=== PATIENT | male | born 1945 | race Caucasian/White ===

== ENCOUNTER 2019-08-31 00:48 | Day surgery (SDC) | payer MEDICARE, SELFPAY ==
[2019-08-30 15:34] VITALS: BMI 26.9
[2019-08-31] VITALS (23 sets, daily range): BP systolic 123–155; BP diastolic 55–80; PULSE 48–74; RESP 12–18; TEMP 36.4–37; O2SAT 93–99; BMI 26.6
--- NOTE | ~2019-08-31 | US_ITS ---
EXAMINATION: US arterial duplex LE RT EXAM DATE: 09/01/2019 10:49 INDICATION: Right groin pain, catheterization yesterday. Check for pseudoaneurysm. TECHNIQUE: Multiple grayscale and Doppler images of the right common and superficial femoral arteries and veins were obtained (by a technologist who performed the scan) and subsequently reviewed. There is no prior study for comparison. FINDINGS: Normal Doppler signal within the right common and superficial femoral arteries and veins. No pseudoan eurysm, hematoma or inguinal mass. IMPRESSION: 1. Unremarkable ultrasound exam. Reviewed, dictated and finalized at location B. [employer]
[2019-08-31 07:41] LABS: Basophils Absolute Auto 0.1 K/mm3 (0.0-0.1); Basophils Percent Auto 1.4 % (0.2-1.2); Eosinophils Absolute Auto 0.3 K/mm3 (0-0.3); Eosinophils Percent Auto 3.9 % (0-4.4); Hematocrit 43.7 % (42.0-52.0); Immature Granulocyte Absolute 0.02 K/mm3 (0.00-0.031); Immature Granulocyte Percent A 0.3 % (0-0.5); Lymphocytes Absolute Auto 3.19 K/mm3 (0.9-3.2); Lymphocytes Percent Auto 44.3 % (18.3-44.2); Mean Corpuscular HGB Conc 34.3 g/dl (32-36); Mean Corpuscular Hemoglobin 29.2 pg (26-34); Mean Corpuscular Volume 85.2 fl (80-100); Monocytes Absolute Auto 0.6 K/mm3 (0.1-0.6); Monocytes Percent Auto 8.8 % (2.6-8.5); Neutrophils Percent Auto 41.3 % (45.5-73.1); Platelet Count Result 198 k/mm3 (150-375); Red Blood Count 5.13 M/mm3 (4.6-6.20); Red Cell Distribution Width 13.4 % (11.5-14.5); White Blood Count 7.2 K/mm3 (4.5-10.0)
[2019-08-31 07:50] LABS: INR 0.9; Prothrombin Time 12.2 Seconds (11.1-14.7)
[2019-08-31 07:53] LABS: Blood Urea Nitrogen 18 mg/dL (9-20); Calcium 8.6 mg/dL (8.4-10.2); Carbon Dioxide 23 mmol/L (22-30); Chloride 104 mmol/L (98-107); Estimated CRCL calculation 60 ml/min; Estimated Glomerular Filt Rate > 60; Glucose 116 mg/dL (75-110); Potassium 4.1 mmol/L (3.4-5.0); Sodium 136 mmol/L (137-145)
--- NOTE | 2019-08-31 08:40 | WPDMODSED ---
Moderate Sedation Note-Pt Data Patient Data Diagnosis: Coronary artery disease with previous inferior infarction and emergency PCI to RCA. Recent symptoms compatible with recurrent ischemia Present Complaint: exertional chest pain /dyspnea Procedure to be performed/Plan: follow-up left heart catheterization Allergies Allergy/AdvReac Type Severity Reaction Status Date / Time No Known Allergies Allergy Verified 08/30/19 15:44 Home Medications Medication Instructions Recorded Confirmed Type aspirin [Aspir-81] 81 mg PO DAILY 08/30/19 08/30/19 History atorvastatin 40 mg PO DAILY 08/30/19 08/30/19 History clopidogrel 75 mg PO DAILY 08/30/19 08/30/19 History lisinopril 20 mg PO DAILY 08/30/19 08/30/19 History metoprolol succinate 25 mg PO DAILY 08/30/19 08/30/19 History Current Medications: Active Medications Sodium Chloride (Normal Saline Iv) 500 mls @ 100 mls/hr IV CONT .Q5H DMITRY Sedation/Anesthesia: No previous sedation/anesthesia problems (including family history). [facility] Family History Family History (Updated 11/06/17 @ 11:03 by DOCTOR UNKNOWN) Mother Patient's mother is , Onset Age: 81 Father Patient's father is , Onset Age: 80 Family history of emphysema Sibling Carcinoma of colon, Onset Age: 67 Family history of gastrointestinal disorder Family history of cardiovascular disease Family history of malignant neoplasm of breast Family history of lymphoma Family history of malignant neoplasm of thyroid Family history of malignant neoplasm of urinary bladder Social History Social History Smoking status: Former smoker Smoking end date: 08/03/11 Alcohol intake: current Mod Sed Physical Exam Physical Exam Pre Procedural Exam: Normal: Appearance, Neck, Throat, Airway, Lungs, Heart Size, Heart Rate, Heart Rhythm, Neuro Exam and Extremities Hours since solid foods: 12 Hours since liquid intake: 12 Internal Medicine - PN: Obj Da Vital Signs Vital Signs: Vital Signs - 24 hr 08/31/19 07:38 Temperature 36.7 C Pulse Rate 63 Respiratory Rate 14 Blood Pressure 155/78 H Pulse Oximetry 98 Meds/Results Medications: Active Medications Generic Name Dose Route Start Last Admin Trade Name Freq PRN Reason Stop Dose Admin Sodium Chloride 500 mls @ 100 mls/hr 08/31/19 06:20 Normal Saline Iv IV CONT .Q5H DMITRY Labs CBC & Chem 7: 08/31/19 07:23 08/31/19 07:23 Labs: Laboratory Results - last 24 hr 08/31/19 08/31/19 08/31/19 07:23 07:23 07:23 WBC 7.2 RBC 5.13 Hgb 15.0 Hct 43.7 MCV 85.2 MCH 29.2 MCHC 34.3 RDW 13.4 Plt Count 198 MPV 11.0 H Immature Gran % (Auto) 0.3 Neut % (Auto) 41.3 L Lymph % (Auto) 44.3 H Sutton % (Auto) 8.8 H Eos % (Auto) 3.9 Baso % (Auto) 1.4 H Lymph # (Auto) 3.19 Sutton # (Auto) 0.6 Eos # (Auto) 0.3 Baso # (Auto) 0.1 Abs Immat Gran (auto) 0.02 Absolute Neuts (auto) 3.0 Absolute Nucleated RBC 0.0 Nucleated RBC % 0.0 PT 12.2 INR 0.9 Sodium 136 L Potassium 4.1 Chloride 104 Carbon Dioxide 23 BUN 18 Creatinine 0.90 Estim Creat Clear Calc 60 Estimated GFR > 60 Glucose 116 H Calcium 8.6 ASA Classification/Sedation ASA Classification/Sedation ASA Class: II Emergent: No Risks: Risks, benefits and alternatives explained and patient/family accepted plan for sedation. Patient re-evaluated immediately prior to sedation.
--- NOTE | 2019-08-31 09:25 | ECG_ITS ---
Measurements Intervals [place] Rate: 52 P: 52 NC: 183 QRS: 8 QRSD: 104 T: 10 QT: 412 QTc: 386 Interpretive Statements SINUS BRADYCARDIA BORDERLINE ECG Electronically Signed On 08-31-2019 16:03:33 HEAD WAITER by Edson Bhardwaj D.O.
--- NOTE | 2019-08-31 09:35 | WPDCARDPROC ---
Cardiac Cath Procedure Note Date of procedure:: 08/31/19 Performing physician:: Killian Espinal MD Indication:: patient with history of CAD, PTCA of the RCA in 2018 in the setting of acute OR. Recurrent symptoms compatible with ischemia Brief clinical history:: 74-year-old gentleman with a history of inferior wall OR in 2018 presented with recurrence of exertional chest pain and recent office appointment. Nuclear stress testing shows a large inferior defect which is predominantly fixed. Because of exertional symptomatology follow-up angiography has been recommended. Procedure Procedure performed:: Coronary angiography left ventriculography IFR determination in RCA PTCA of RCA Sedation/Medication given:: fentanyl 50 mg Versed 2 mg case start time 8:45 a.m. case end time 9:20 a.m. Access site:: right femoral artery Estimated blood loss:: 20-30 cc Procedure note:: patient was brought to the cardiac catheterization lab in the postabsorptive state the right femoral triangle was prepared in the usual fashion. Anesthesia was provided with 1% lidocaine infiltrated locally. Using the modified Seldinger technique a 5 Congolese sheath was placed into the femoral artery. Left heart catheterization was then carried out. A 5 Congolese angle pigtail catheter was used to measure left-sided hemodynamics and injected LV g in the OLIVA projection. Following this standard FL4 and JR4 catheters were used to engage inject the left and right coronaries in multiple projections. The angiograms were then reviewed. Following this it was recommended to perform IFR determination in the RCA. For this the 5 Congolese sheath was exchanged over a guidewire for 6 Congolese and he was systemically anticoagulated with Angiomax. The patient has chronically been on aspirin and clopidogrel and was not given any additional anti-platelet therapy during this procedure. Following IFR determination PCI of the mid right coronary artery was recommended and carried out as detailed below. Following this the case was terminated and the sheath was sutured in position was taken to the holding area for post PCI recovery. Findings:: Central aortic pressure was 140 over 48 left ventricle 140 over 0 end-diastolic pressure 18 no gradient was seen across the aortic valve. The left ventricle is normal in size there is moderate hypokinesis of the inferior wall but it is not akinetic the remainder of the LV contracts well the global ejection fraction is 50% by visual estimation left main coronary artery is widely patent and relatively short. The LAD is a moderate caliber artery extending down to the apex the LAD and its branches are smooth in angiographically unremarkable circumflex is a medium caliber vessel giving rise to the marginal branches the circumflex is smooth and angiographically unremarkable right coronary artery is medium in caliber dominant to the posterior circulation is visible stent material in the mid RCA. This is a previously deployed 3 x 38 mm Alpine drug-eluting stent. Angiographically there appears to be about 50% stenosis in the midportion of the stent which is relatively discrete. There was angiographically ADRIENNE 3 flow in the vessel. Because of the symptomatology IFR for a determination was recommended and was abnormal at 0.84. PCI of the lesion was therefore recommended. Following this the IFR wire was used to conduct PCI the lesion was crossed with a 3.0 x 15 mm noncompliant balloon which was inflated at 16 atmospheres. Following this inflation the vessel is widely patent the stenosis described above was UE mandated and there was no dissection perforation or distal embolization. Conclusion:: Coronary artery disease with previous inferior wall infarction treated with MARÍA to the mid right coronary artery recurrent ischemic symptoms due to recurrent stenosis in the midportion of the stent which angiographically did not appear severe but was flow limiting by IFR.
[2019-08-31] MEDS: SODIUM CHLORIDE 0.9% IV 1,000 ML 125 ML IV CONT (12:00)
--- NOTE | 2019-08-31 13:05 | SUR.PHASEII ---
1244 PT UNABLE TO VOID. 16 FR DIAZ CATHETER PLACED WITHOUT DIFFICULTY. CLEAR YELLOW URINE. RIGHT GROIN 6FR SHEATH REMOVED PER GEOVANNI BUCK., INTACT. FIRM MANUAL PRESSURE HELD UNTIL HEMOSTASIS ACHIEVED.
[2019-09-01] VITALS (8 sets, daily range): BP systolic 116–136; BP diastolic 61–70; PULSE 56–67; RESP 14–18; TEMP 36.4–37.1; O2SAT 97
--- NOTE | 2019-09-01 05:11 | ECG_ITS ---
Measurements Intervals [place] Rate: 60 P: 42 IN: 164 QRS: 4 QRSD: 102 T: 22 QT: 393 QTc: 395 Interpretive Statements SINUS RHYTHM NORMAL ECG Electronically Signed On 09-01-2019 8:11:07 FORESTRY PATROLMAN by Edson Bhardwaj D.O.
[2019-09-01] MEDS: ASPIRIN 81 MG ENTERIC TABLET PO (08:06)
[2019-09-01] MEDS: METOPROLOL SUCCINATE EXT REL 25 MG TABCR PO (08:07)
[2019-09-01] MEDS: ATORVASTATIN 40 MG TABLET PO (08:07)
[2019-09-01] MEDS: lisinopriL 20 MG TABLET PO (08:07)
[2019-09-01] MEDS: CLOPIDOGREL BISULFATE 75 MG TABLET PO (08:07)
--- NOTE | 2019-09-01 10:10 | PC.NURSE ---
DIMITRY MEREDITH PAPER CONSERVATOR HERE TO SEE PT. CONDITION UPDATE GIVEN.
--- NOTE | 2019-09-01 10:25 | PM.DS ---
DS: Diagnosis Admitting Diagnosis Admitting Diagnosis: Exertional angina Coronary artery disease Discharge Diagnosis (1) Coronary artery disease: Qualifiers: Coronary Disease-Associated Artery/Lesion type: [place] artery [place] vs. transplanted heart: [place]ka heart Associated angina: with stable angina Qualified Code(s): I25.118 - Atherosclerotic heart disease of [place] coronary artery with other forms of angina pectoris Code(s): I25.10 - Atherosclerotic heart disease of [place] coronary artery without angina pectoris Status: Acute Assessment and Plan: Cardiac catheterization 08/31/2019 as above ultrasound of right femoral site as above DS: Summary Hospital Course Reason for hospitalization: Exertional angina Coronary artery disease Hospital Course: 74-year-old male with history of CAD, PTCA of the RCA in 2018 in the setting of acute CA. He presented with recurrence of exertional chest pain at a recent office appointment. Nuclear stress testing showed a large inferior defect which is predominantly fixed. Because of exertional symptomatology follow-up angiography was recommended. he was taken to the cardiac catheterization lab by Dr. Espinal on 08/31/2019 with a significant findings of recurrence stenosis in the midportion of the stent which angiographically did not appear severe but was flow limiting by IFR. It was treated with high-pressure noncompliant balloon inflation with yarsani of excellent angiographic appearance. Left coronary artery was normal. Modest inferior hypokinesia with overall good ejection fraction. He was monitored overnight. He had no chest discomfort, shortness of breath, lightheadedness or palpitations. His vital signs were stable. Right groin site was without swelling or bleeding however did have a bruit. Ultrasound was performed which was negative for pseudoaneurysm. He was discharged home in stable and pain-free condition. Status at Discharge Functional status at discharge: independent ambulation Time Spent with Patient Time attestation: Total time spent providing and/or coordinating discharge services: 25 minutes Exam Const: General: comfortable and no acute distress HENMT: General nose exam: Normal nares present Eyes: General: appearance normal, both eyes and all related structures Neck: Neck: no JVD Resp: Effort & Inspection: normal respiratory effort Auscultation: clear to auscultation bilaterally Cardio: Rate: regular rate Rhythm: regular rhythm Heart sounds: no murmurs Other: Right femoral cardiac catheterization site without swelling or bleeding. No ecchymosis. stat seal intact. Femoral bruit noted. Distal pulses intact. GI: GI Palp: Yes Soft to palpation Auscultation: normal bowel sounds Skin: General skin exam: normal color Neuro: General: patient oriented x3, moves all extremities and no focal motor deficits Cognition (Neuro): normal cognition Speech: normal speech Extrem: General: normal to inspection and no edema Psych: Appearance: grossly normal Mental Status: mental status grossly normal Speech and movement: Normal speech and movement present Thought content: Yes Normal thought content present DS: Data Data Completed and Pending Completed studies during hospitalization: ultrasound arterial duplex lower extremity right: Normal Doppler signal within right common and superficial femoral arteries and veins no pseudoaneurysm, hematoma or inguinal mass. Procedures/Treatments: Cardiac catheterization and PCI as above Discharge Plan Discharge Patient Disposition: Home, Self-Care Discharge Instructions: ACTIVITY: No driving for 24 hours. No lifting, pushing or pulling more than 10 pounds for 1 week. No strenuous exercise or activity for 1 week. May shower but no tub baths or swimming pool for 1 week. Avoid commercial hot tubs. They are too hot DO NOT STOP YOUR MEDICATIONS! ONLY YOUR DUMP OPERATOR CAN STOP THE FOL
--- NOTE | 2019-09-01 10:37 | PC.NURSE ---
DOWN VIA STRETCHER FOR US R. GROIN PUNCTURE SITE.
--- NOTE | 2019-09-01 10:57 | PC.NURSE ---
RETURNS VIA STRETCHER TO [facility] 5 S/P US R. CHESTERIN SITE.
--- NOTE | 2019-09-01 11:20 | PC.NURSE ---
RESULTS OF US CALLED TO DIMITRY MEREDITH NP. PT. AND UPDATED.
== END 2019-09-01 12:40 | disposition home or self-care (01) ==
LOC: ANHCATHLAB 09:30 → ANHCPC 09-01 09:55
PROVIDERS: PCP Family Medicine; Visit Provider Specialist
PROC: 4A023N7 Measurement of Cardiac Sampling and Pressure, Left Heart, Percutaneous Approach (ICD-10-PCS; CPT 93452; principal; 2019-08-31 08:30)
PROC: 4A033BC Measurement of Arterial Pressure, Coronary, Percutaneous Approach (ICD-10-PCS; CPT 93571; 2019-08-31 08:30)
PROC: 02703ZZ Dilation of Coronary Artery, One Artery, Percutaneous Approach (ICD-10-PCS; CPT 92920; 2019-08-31 08:30)
DX: I25.10 Atherosclerotic heart disease of native coronary artery without angina pectoris (principal); T82.855A Stenosis of coronary artery stent, initial encounter; Y71.8 Miscellaneous cardiovascular devices associated with adverse incidents, not elsewhere classified; R94.39 Abnormal result of other cardiovascular function study; R07.9 Chest pain, unspecified; R09.89 Other specified symptoms and signs involving the circulatory and respiratory systems; R10.31 Right lower quadrant pain; I25.2 Old myocardial infarction; Z79.02 Long term (current) use of antithrombotics/antiplatelets; Z79.82 Long term (current) use of aspirin
CPT/HCPCS: 36415; 80048; 85025; 85610; 92920; 93005; 93458; 93571; 93926; A9270; C1725; C1769; C1887; C1894; J0583; J1644; J2250; J3010; J7030; J7040

== ENCOUNTER → 2019-09-21 15:58 | Outpatient (CLI) | payer MEDICARE, SELFPAY ==
--- NOTE | ~2019-09-21 | XR_ITS ---
EXAMINATION: XR chest 2V 09/21/2019 16:22 INDICATION: Coronary artery disease. Dyspnea. PROCEDURE: 2 view chest COMPARISON: Comparison to multiple prior studies sequentially, with oldest reviewed study dated 12/15. FINDINGS: The lungs are clear. Calcified granuloma right midlung. The cardiomediastinal silhouette is within normal limits. There are no pleural effusions. There is no pneumothorax suspected. IMPRESSION: 1: NO ACUTE CARDIOPULMONARY DISEASE. Reviewed, dictated and finalized at location A. HAT FLANGER
== END ==
PROVIDERS: Visit Provider Nurse Practitioner Adult Health
DX: R06.09 Other forms of dyspnea (principal)
CPT/HCPCS: 71046

== ENCOUNTER 2020-01-02 09:19 | Outpatient (CLI) | payer MEDICARE, SELFPAY ==
--- NOTE | ~2020-01-02 | MR_ITS ---
EXAMINATION: MR shoulder RT wo con DATE: 01/02/2020 10:19 INDICATION: Right shoulder pain. TECHNIQUE: Magnetic resonance imaging (MRI) of the right shoulder was performed without intravenous c ontrast. Sequences included axial PD-weighted FS FSE, coronal oblique PD-weighted FS FSE and T2-weigh abdelrahman FS FSE, and sagittal oblique T2-weighted FS FSE and T1-weighted FSE. COMPARISON: Right shoulder radiographs 11/16/2019, MRI 04/12/2018 FINDINGS: Coracoacromial arch: The acromion undersurface is flat in morphology (type I). There are changes of distal clavicle resect ion. No subacromial/subdeltoid bursitis. Rotator cuff: There are changes of rotator cuff repair. There is an articular-sided partial-thickness tear of supra spinatus and infraspinatus tendons measuring 3.3 cm anterior to posterior by 3.8 cm proximal to dista l by up to 90% tendon thickness. Teres minor tendon is normal. There is an interstitial tear of super ior subscapularis tendon. There is volume loss and mild to moderate fatty atrophy of infraspinatus an d teres minor muscle bellies. Biceps tendon and glenoid labrum: Biceps tendon is medially displaced into the subscapularis tendon tear. There is mild biceps tendinop athy. There is degeneration of superior labrum without well-defined tear. Fluid: There is no glenohumeral joint effusion. Bones/cartilage: There is cartilage surface irregularity of glenoid and humeral head. IMPRESSION: 1. Partial-thickness tears of the rotator cuff with interval worsening at the subscapularis tendon. U nchanged volume loss and mild to moderate fatty atrophy of infraspinatus and teres minor muscle richard es. 2. Medial displacement of the biceps tendon into the subscapularis tendon tear. Mild biceps tendinopa thy. 3. Mild glenohumeral joint chondrosis. Reviewed, dictated and finalized at location A. IMPRESSION: 1. Partial-thickness tears of the rotator cuff with interval worsening at the s ubscapularis tendon. Unchanged volume loss and mild to moderate fatty atrophy o f infraspinatus and teres minor muscle bellies. 2. Medial displacement of the biceps tendon into the subscapularis tendon tear. Mild biceps tendinopathy. 3. Mild glenohumeral joint chondrosis.
== END 2020-01-02 09:20 | disposition home or self-care (01) ==
PROVIDERS: PCP Family Medicine; Visit Provider Orthopaedic Surgery
DX: S43.081D Other subluxation of right shoulder joint, subsequent encounter (principal); X58.XXXD Exposure to other specified factors, subsequent encounter
CPT/HCPCS: 73221

== ENCOUNTER → 2022-10-21 13:41 | Outpatient (CLI) | payer MEDICARE, SELFPAY ==
--- NOTE | ~2022-10-21 | XR_ITS ---
EXAM: XR foot RT min 3V DATE: 10/21/2022 13:54 HISTORY: no injury heel pain after walking 6 miles . COMPARISON: None available. FINDINGS: Normal mineralization. No fracture or dislocation. No lytic or blastic lesion. Mild scatte red degenerative change. Minimal Achilles and plantar enthesopathy. No erosion or periosteal change. Vascular calcifications. IMPRESSION: No acute osseous finding in the right foot. Reviewed, dictated and finalized at location K.
== END ==
PROVIDERS: PCP Family Medicine; Visit Provider Nurse Practitioner
DX: M79.671 Pain in right foot (principal)
CPT/HCPCS: 73630

== ENCOUNTER → 2022-10-31 09:25 | Outpatient (CLI) | payer MEDICARE, SELFPAY ==
--- NOTE | ~2022-10-31 | MR_ITS ---
MRI of the right foot/hindfoot Clinical history: Heel pain Technique: Coronal proton-density and proton-density fat-sat images, axial proton-density and proton- density fat-sat images, and sagittal proton-density and proton-density fat-sat images were acquired. Findings: Syndesmotic ligaments are intact. Anterior and posterior talofibular ligaments, and calcane ofibular ligament are intact. Deltoid ligament is intact. Medial flexor tendons, peroneal tendons, anterior extensor tendons, and Achilles tendon are intact. There is thickening and mild increased signal at the origin of the plantar fascia, with mild edema in the adjacent calcaneus. Remaining bone marrow signals are unremarkable. No joint effusion seen. Norm al signal preserved in the sinus Tarsi. No soft tissue mass or fluid collection seen. Impression: Findings consistent with mild plantar fasciitis, as detailed above. Reviewed, dictated and finalized at [facility] [place] [facility]. Impression: Findings consistent with mild plantar fasciitis, as detailed above.
== END ==
PROVIDERS: PCP Family Medicine; Visit Provider Nurse Practitioner
DX: M79.671 Pain in right foot (principal)
CPT/HCPCS: 73718

== ENCOUNTER 2022-12-22 20:02 | Emergency (ER) | payer MEDICARE, SELFPAY ==
--- NOTE | ~2022-12-22 | CT_ITS ---
EXAMINATION: CT brain wo con DATE: 12/22/2022 20:41 INDICATION: fall, hit head, takes plavix . TECHNIQUE: Computed tomography (CT) of the head was performed without intravenous contrast. The mA wa s adjusted according to patient size. Iterative reconstruction technique was employed. The dose-lengt h product was 605.33 mGy-cm. COMPARISON: 10/31/2017. FINDINGS: No acute intracranial hemorrhage or extra-axial fluid collection. No hydrocephalus, mass, or herniation. No acute ischemic infarct. Unremarkable dural venous sinus attenuation. No acute osseous abnormality. The aerated spaces are clear. Mild atrophy and chronic white matter change. Atherosclerotic intracranial calcification. IMPRESSION: No acute intracranial process. Reviewed, dictated and finalized at location K.
[2022-12-22 20:22] VITALS: BP 139/76; PULSE 70; RESP 20; TEMP 36.9; O2SAT 97
--- NOTE | 2022-12-22 20:26 | ECG_ITS ---
Measurements Intervals [place] Rate: 65 P: 62 IA: 176 QRS: 33 QRSD: 113 T: 46 QT: 380 QTc: 398 Interpretive Statements SINUS RHYTHM INTRAVENTRICULAR CONDUCTION DELAY BORDERLINE ECG COMPARED TO ECG 09/01/2019 07:54:15 INTRAVENTRICULAR CONDUCTION DELAY NOW PRESENT Electronically Signed On 12-22-2022 21:36:50 CDT by Edson Bhardwaj D.O.
[2022-12-22 20:56] LABS: Basophils Absolute Auto 0.1 K/mm3 (0.0-0.1); Basophils Percent Auto 0.7 % (0.2-1.2); Eosinophils Absolute Auto 0.2 K/mm3 (0-0.3); Hematocrit 42.4 % (42.0-52.0); Hemoglobin 14.2 g/dL (14.0-18.0); Immature Granulocyte Absolute 0.02 K/mm3 (0.00-0.031); Immature Granulocyte Percent A 0.2 % (0-0.5); Lymphocytes Percent Auto 36.7 % (18.3-44.2); Mean Corpuscular HGB Conc 33.5 g/dl (32-36); Mean Corpuscular Hemoglobin 29.3 pg (26-34); Mean Corpuscular Volume 87.4 fl (80-100); Mean Platelet Volume 10.5 fl (7.4-10.4); Monocytes Absolute Auto 0.7 K/mm3 (0.1-0.6); Neutrophils Absolute Auto 4.3 K/mm3 (1.3-6.7); Neutrophils Percent Auto 52.4 % (45.5-73.1); Platelet Count Result 199 k/mm3 (150-375); Red Blood Count 4.85 M/mm3 (4.6-6.20); Red Cell Distribution Width 13.6 % (11.5-14.5); White Blood Count 8.2 K/mm3 (4.5-10.0)
[2022-12-22 21:06] LABS: Alanine Aminotransferase 25 U/L (6-50); Albumin Level 3.8 g/dL (3.5-5.1); Alkaline Phosphatase 61 U/L (38-126); Anion Gap 5 mmol/L (8-16); Aspartate Amino Transferase 31 U/L (17-59); Bilirubin,Total 0.8 mg/dL (0.2-1.3); Blood Urea Nitrogen 20 mg/dL (9-20); Calcium 8.6 mg/dL (8.4-10.2); Carbon Dioxide 30 mmol/L (22-30); Chloride 103 mmol/L (98-107); Estimated CRCL calculation 44 ml/min; Estimated Glomerular Filt Rate 59; Glucose 142 mg/dL (65-110); Potassium 3.8 mmol/L (3.4-5.0); Sodium 138 mmol/L (137-145)
--- NOTE | 2022-12-22 22:52 | PC.NURSE ---
Pt's daughter Gypsy Burns approached front office developer multiple times to inquire about wait time. This RN informed her each time that wait time is not guaranteed but we are working as hard as possible to discharge pts and clean rooms as quickly as possible. This RN provided daughter with patient portal packet so she can access his results and instructed her to let me know if she decides to take him home. Pt's daughter approached the desk again, this time accompanied by pt and pt's (who walked out of the department), and again asked how long it will be before pt is put in a room. This RN explained that it is still no guarantee how much longer the wait is. Daughter states he's feeling sick. He's been up for almost 24 hours and he just needs some rest . This RN informed daughter that if pt is feeling worse it would be best for pt to be seen by a provider. Daughter asked if pt would be admitted or discharged. This RN explained that decision would be made by the ED provider. Daughter states Well I'm just going to take him home . Pt has already ambulated out of department with his . This RN instructed daughter to call 911 if his condition worsens. Daughter asked how receiving a bill from the ER would work and this RN offered ED charge nurse to come and speak with her. Daughter declines but states Can you just have somebody call me? I want to get him home . Gypsy's phone number is [phone].
== END 2022-12-22 22:52 | disposition left against medical advice (07) ==
PROVIDERS: Emergency Provider Emergency Medicine; PCP Family Medicine
DX: R51.9 Headache, unspecified (principal)
CPT/HCPCS: 36415; 70450; 80053; 85025; 93005; 99199

== ENCOUNTER 2023-05-10 18:33 | Inpatient (IN) | payer MEDICARE, SELFPAY ==
[2023-05-10] VITALS (13 sets, daily range): BP systolic 106–155; BP diastolic 48–82; PULSE 65–85; RESP 12–21; TEMP 36.9–40.9; O2SAT 89–97; BMI 25.9
--- NOTE | ~2023-05-10 | US_ITS ---
EXAMINATION: US right upper quadrant DATE: 05/14/2023 08:34 INDICATION: Bacteremia TECHNIQUE: Multiple grayscale and Doppler ultrasound images of the abdomen were obtained. COMPARISON: CT, 05/10/2023 FINDINGS: The head and body of the pancreas are normal. The pancreatic tail is obscured by bowel gas. The liver is normal with normal echogenicity and echotexture. No surface nodularity. Normal hepatope johnson flow in the main portal vein. A stone is present in the nondistended gallbladder. No gallbladder wall thickening or pericholecystic fluid. The normal common bile duct measures 4 mm. There was no son ographic Orellana sign. IMPRESSION: 1. Cholelithiasis without evidence of cholecystitis. Reviewed, dictated and finalized at location L.
--- NOTE | ~2023-05-10 | CT_ITS ---
EXAMINATION: CT chest abdomen pelvis w con DATE: 05/10/2023 19:31 INDICATION: sepsis, AMS . TECHNIQUE: Computed tomography (CT) of the chest, abdomen, and pelvis was performed with 100 mL Omnip aque-350 intravenous contrast. Automated exposure control and iterative reconstruction technique were employed. The dose-length product was 1309.43 mGy-cm. COMPARISON: None FINDINGS: CHEST: Thoracic aorta: No significant dilation. Mild arch calcification. Lung parenchyma and airways: Mild senescent change. Dependent scar/atelectasis. Lungs and airways are otherwise clear. Thoracic inlet, axillae and chest wall: No thyroid or soft tissue mass. No axillary lymphadenopathy. Mediastinum: No mass or lymphadenopathy. Heart and pericardium: Mild cardiomegaly. No pericardial effusion. Coronary artery calcifications: Absent. Pleura: No effusion or mass. Thoracic bones: No acute osseous finding in the chest. ABDOMEN/PELVIS: Liver: Normal. Biliary/Gallbladder: Dilated gallbladder without inflammatory change or wall thickening. No stones. N o bile duct dilation. Pancreas: No mass or duct dilation. Spleen: Normal. Adrenals:No mass. Kidneys: 2 mm nonobstructing right midpole calcification. No suspicious mass, obstructing stone, or hydronephrosis. GI tract: Small hiatal hernia. Moderate distal esophageal and gastric wall edema. No small or large b owel dilation. Mild diffuse colonic wall edema. Normal appendix. Diverticulosis without diverticuliti s. Mesentery/Peritoneum: No ascites, mass, or free air. Retroperitoneum: No mass Pelvis: Penile pump device. Benitez catheter in the urinary bladder. Prostatomegaly. Pelvic organs are within normal limits Soft Tissues: Soft tissues and body wall unremarkable. Abdominopelvic bones: No acute osseous finding in the abdomen/pelvis. IMPRESSION: Moderate esophagitis/gastritis. Gallbladder hydrops without inflammatory change. Mild diffuse colonic wall edema may reflect a component of colitis in the appropriate clinical contex t. Reviewed, dictated and finalized at location K. IMPRESSION: Moderate esophagitis/gastritis. Gallbladder hydrops without inflammatory change. Mild diffuse colonic wall edema may reflect a component of colitis in the appro priate clinical context.
--- NOTE | ~2023-05-10 | CT_ITS ---
EXAMINATION: CT brain wo con DATE: 05/10/2023 19:28 INDICATION: AMS . TECHNIQUE: Computed tomography (CT) of the head was performed without intravenous contrast. The mA wa s adjusted according to patient size. Iterative reconstruction technique was employed. The dose-lengt h product was 681.00 mGy-cm. COMPARISON: 12/22/2022. FINDINGS: No acute intracranial hemorrhage or extra-axial fluid collection. No hydrocephalus, mass, or herniation. No acute ischemic infarct. Unremarkable dural venous sinus attenuation. No acute osseous abnormality. Inferior frontal and mild ethmoid mucosal thickening, the remaining aerated spaces are clear. Moderate atrophy and chronic white matter change. Atherosclerotic intracranial calcification. Bilater al basal ganglia calcification. IMPRESSION: No acute intracranial process. Reviewed, dictated and finalized at location K.
--- NOTE | ~2023-05-10 | XR_ITS ---
EXAM: XR foot RT min 3V DATE: 05/10/2023 20:45 HISTORY: right foot pain . COMPARISON: 10/21/2022. FINDINGS: Normal mineralization. Ossific or calcific densities project adjacent to the talonavicular articulation, seen in the lateral view, increased from the prior. Otherwise, no fracture or dislocat ion. No lytic or blastic lesion. Mild scattered degenerative change. Plantar enthesopathy. No erosion or periosteal change. Soft tissues within normal limits. IMPRESSION: Ossific/calcific densities over the superior aspect of the talonavicular articulation, which may repr esent talonavicular capsular avulsion if accompanied by point tenderness/pain. No Reviewed, dictated and finalized at location K. IMPRESSION: Ossific/calcific densities over the superior aspect of the talonavicular articu lation, which may represent talonavicular capsular avulsion if accompanied by p oint tenderness/pain. No
--- NOTE | 2023-05-10 18:37 | ECG_ITS ---
Measurements Intervals [place] Rate: 81 P: 79 [place]: 172 QRS: 16 QRSD: 93 T: 29 QT: 330 QTc: 385 Interpretive Statements SINUS RHYTHM ARTIFACT LIMITS INTERPRETATION ABNORMAL ECG COMPARED TO ECG 12/22/2022 20:46:56 NO SIGNIFICANT CHANGES Electronically Signed On 05-11-2023 9:27:53 CDT by Arsh Benavides M.D.
[2023-05-10] MEDS: SODIUM CHLORIDE 0.9% IV 1,000 ML 999 ML IV CONT ×3 (18:50→18:51)
[2023-05-10] MEDS: ACETAMINOPHEN 650 MG SUPPOSITORY RECTAL (18:51)
--- NOTE | 2023-05-10 18:53 | ED.AMS ---
HPI - Altered Mental Status General Chief Complaint: Altered Mental Status Stated Complaint: Altered Mental Status Time Seen by Provider: 05/10/23 18:36 History of Present Illness HPI narrative: Patient is a 78-year-old male with a history of hypertension, CAD presenting with altered mental status. Patient's family helps with the history. States that the patient is not a complainer but he has been saying that he has not been feeling well lately. He has not been reporting any focal pain. Sounds like he was feeling nauseous earlier and had a couple episodes of emesis. He also had an episode of loose stools. On arrival, patient is alert and altered. He is able to tell us his name and he currently denies pain though he states that he still feels nauseated. Further history is limited secondary to altered status. Related Data Home Medications Medication Instructions Recorded Confirmed aspirin 81 mg tablet,delayed 81 mg PO DAILY 08/30/19 05/10/23 release (Aspir-) atorvastatin 40 mg tablet 40 mg PO DAILY 08/30/19 05/10/23 clopidogrel 75 mg tablet 75 mg PO DAILY 08/30/19 05/10/23 lisinopril 40 mg tablet 40 mg PO DAILY 12/24/22 05/10/23 metoprolol succinate 50 mg 50 mg PO DAILY 12/24/22 05/10/23 tablet,extended release 24 hr isosorbide mononitrate 30 mg 30 mg PO DAILY 05/10/23 05/10/23 tablet,extended release 24 hr Allergies Allergy/AdvReac Type Severity Reaction Status Date / Time No Known Allergies Allergy Verified 05/10/23 22:10 Review of Systems Review of Systems: All systems reviewed & are unremarkable except as noted in HPI and below PMFSH Past Medical History Medical History BMI 27.0-27.9,adult Heel pain History of stroke Hypertension Right rotator cuff tear Right shoulder pain 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 ballooned 1.28.20 Surgical History Surgical History History of appendectomy History of shoulder surgery (~2000) R RTC repair 2000 [place] Family History Family History Mother Patient's mother is , Onset Age: 81 Father Patient's father is , Onset Age: 80 Family history of emphysema Sibling Carcinoma of colon, Onset Age: 67 Family history of gastrointestinal disorder Family history of cardiovascular disease Family history of malignant neoplasm of breast Family history of lymphoma Family history of malignant neoplasm of thyroid Family history of malignant neoplasm of urinary bladder Social History Social History Smoking packs per day: 0.5 Smoking cigarettes per day: 10.0 Years smoked: 54 Smoking pack-years: 27.00 Smoking status: Former smoker Tobacco type: cigarettes Smoking end date: 08/03/11 Alcohol intake: never Alcohol use details: Occasional Substance use: never Lack of Transportation: No Lack of Food: Never True Current Housing: I Have Housing Concerned About Future Housing: No Difficulty Paying Gas/Electric Bills: No Difficulty Paying for Meds: No Currently Unemployed: No Education: High School Diploma/GED Difficulty w/ Childcare or Family Care: No Living arrangements: with family Additional living arrangements comments: Spouse- Jacqueline Wilks Occupation/Education: occupation Additional occupation/education comments: Self-Employed Spiritual care concerns: No Exam Narrative: GENERAL: Ill-appearing, restless, dried vomit on gown HEAD: Normocephalic, atraumatic. EYES: PERRLA and EOMI. ENT: Mucous membranes dry NECK: Supple. CHEST: Clear to auscultation. No respiratory distress. HEART: Regular rate and rhythm ABDOMEN: Soft, nontender, nondistended EXTREMITIES: No edema. SKIN: Warm, dry, no rash. NEURO: Patient is oriented to se
[2023-05-10 18:58] LABS: Basophils Percent Auto 0.6 % (0.2-1.2); Eosinophils Percent Auto 0.3 % (0-4.4); Hematocrit 44.6 % (42.0-52.0); Hemoglobin 14.8 g/dL (14.0-18.0); Immature Granulocyte Absolute 0.03 K/mm3 (0.00-0.031); Immature Granulocyte Percent A 0.4 % (0-0.5); Lymphocytes Absolute Auto 0.84 K/mm3 (0.9-3.2); Lymphocytes Percent Auto 12.4 % (18.3-44.2); Mean Corpuscular HGB Conc 33.2 g/dl (32-36); Mean Corpuscular Hemoglobin 29.7 pg (26-34); Mean Corpuscular Volume 89.4 fl (80-100); Mean Platelet Volume 10.8 fl (7.4-10.4); Monocytes Absolute Auto 0.2 K/mm3 (0.1-0.6); Monocytes Percent Auto 3.4 % (2.6-8.5); Neutrophils Absolute Auto 5.6 K/mm3 (1.3-6.7); Neutrophils Percent Auto 82.9 % (45.5-73.1); Platelet Count Result 149 k/mm3 (150-375); Red Blood Count 4.99 M/mm3 (4.6-6.20); Red Cell Distribution Width 13.2 % (11.5-14.5); White Blood Count 6.8 K/mm3 (4.5-10.0)
[2023-05-10 19:05] LABS: Lactic Acid Reflex 1.9 mmol/L (0.7-2.0)
[2023-05-10 19:06] LABS: Alanine Aminotransferase 23 U/L (6-50); Alkaline Phosphatase 69 U/L (38-126); Anion Gap 7 mmol/L (8-16); Aspartate Amino Transferase 29 U/L (17-59); Bilirubin,Total 1.7 mg/dL (0.2-1.3); Blood Urea Nitrogen 16 mg/dL (9-20); Calcium 8.5 mg/dL (8.4-10.2); Carbon Dioxide 25 mmol/L (22-30); Chloride 102 mmol/L (98-107); Estimated Glomerular Filt Rate > 60; Glucose 134 mg/dL (65-110); Lipase 84 U/L (23-300); Magnesium 1.6 mg/dL (1.6-2.3); Potassium 3.7 mmol/L (3.4-5.0); Sodium 134 mmol/L (137-145)
[2023-05-10 19:08] LABS: Appearance Urine Clear (Clear); Bilirubin Urine Negative (Negative); Blood Urine Trace-intact (Negative); Color Urine Yellow (Yellow); Glucose Urine UA Negative (Negative); Ketones Urine Trace mg/dL (Negative); Leukocyte Esterase Ur Negative LEU/UL (Negative); Nitrate Urine Negative (Negative); Protein Urine Negative (Negative); Urobilinogen Urine 0.2 mg/dL (<2.0)
[2023-05-10 19:09] LABS: INR 1.1; Prothrombin Time 14.7 Seconds (11.1-14.7)
[2023-05-10] MEDS: ONDANSETRON INJ 4 MG/2 ML VIAL (19:09)
[2023-05-10 19:10] LABS: Partial Thromboplastin Time 26.1 SECONDS (22.3-36.8)
[2023-05-10] MEDS: PIPERACILLIN/TAZ 4.5G/NS 100ML 4.5 GM/100 ML BAG IVPB (19:10)
[2023-05-10 19:17] LABS: Troponin I < 0.012 ng/mL (0.000-0.034)
[2023-05-10 19:20] LABS: Add Urine Microscopic? YES; Squamous Epithelial Cell Urine Few /hpf (Few); WBC Urine 0-3 /hpf (0-3)
[2023-05-10 19:21] LABS: Bacteria Urine Trace /hpf; Mucus Urine Present /lpf
[2023-05-10 19:32] LABS: Influenza A QL RT-PCR Negative (Negative); Influenza B QL RT-PCR Negative (Negative); SARS-CoV-2 RNA PCR Negative (Negative)
[2023-05-10] MEDS: KETOROLAC 30 MG/ML VIAL (*BKC) IV PUSH (20:44)
--- NOTE | 2023-05-10 22:00 | ADMGEN ---
This patient, Foreign Wilks, was admitted to Medical Room 245-. Patient/family oriented to hospital policies and general routines including ID bracelet, bed and alarms, visiting hours, pain management, procedures, bathroom and other care routines, personal items, smoking policy, room service/diet, and visiting hours. Information on how to activate the Rapid Response Team has been discussed. Patient/Family are encouraged to report perceived risks to care and to ask questions if they do not understand what they are told or what they should do.
--- NOTE | 2023-05-10 22:30 | PM.IMHP ---
H&P: HPI History of Present Illness Date/Time: 05/10/23 22:30 Chief Complaint: Patient was brought to the ER for evaluation by family with the altered mental status and high fever Narrative: 78 years old white male was brought to the ER for evaluation by family as he was not feeling well lately. He has a high tolerance for pain and does not complain until he feels really bad. He had few episodes of nausea and a couple episodes of vomiting with loose stools. His family brought him to the ER for evaluation. Workup was done which showed high-grade fever with 105.6? high-grade fever. Patient was given aggressive IV hydration with 3 L of IV fluids and rectal Tylenol. He was also started on IV Zosyn and vancomycin for presumed sepsis. His temperature is now down to 101 and he is more mentally stable and responsive. He is being placed in observation for medical management and close monitoring. Review of Systems Review of Systems: he denies any chest pain, palpitations, loss of consciousness, falls or blurred vision All systems reviewed & are unremarkable except as noted in HPI and below PMFSH Past Medical History Medical History BMI 27.0-27.9,adult Heel pain History of stroke Right rotator cuff tear Right shoulder pain 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 ballooned 1.28.20 Surgical History Surgical History History of appendectomy History of shoulder surgery (~2000) R RTC repair 2000 [place] Family History Family History Mother Patient's mother is , Onset Age: 81 Father Patient's father is , Onset Age: 80 Family history of emphysema Sibling Carcinoma of colon, Onset Age: 67 Family history of gastrointestinal disorder Family history of cardiovascular disease Family history of malignant neoplasm of breast Family history of lymphoma Family history of malignant neoplasm of thyroid Family history of malignant neoplasm of urinary bladder Social History Social History Smoking packs per day: 0.5 Smoking cigarettes per day: 10.0 Years smoked: 54 Smoking pack-years: 27.00 Smoking status: Former smoker Tobacco type: cigarettes Smoking end date: 08/03/11 Alcohol intake: never Alcohol use details: Occasional Substance use: never Lack of Transportation: No Lack of Food: Never True Current Housing: I Have Housing Concerned About Future Housing: No Difficulty Paying Gas/Electric Bills: No Difficulty Paying for Meds: No Currently Unemployed: No Education: High School Diploma/GED Difficulty w/ Childcare or Family Care: No Living arrangements: with family Additional living arrangements comments: Spouse- Jacqueline Wilks Occupation/Education: occupation Additional occupation/education comments: Self-Employed Spiritual care concerns: No Meds Home Medications and Allergies Home Medications Medication Instructions Recorded Confirmed Type aspirin 81 mg tablet,delayed 81 mg PO DAILY 08/30/19 05/10/23 History release (Aspir-) atorvastatin 40 mg tablet 40 mg PO DAILY 08/30/19 05/10/23 History clopidogrel 75 mg tablet 75 mg PO DAILY 08/30/19 05/10/23 History nitroglycerin 0.4 mg sublingual 0.4 mg sublingual DIRECTED PRN 09/01/19 05/10/23 Rx tablet (Nitrostat) Chest Pain #25 tabs lisinopril 40 mg tablet 40 mg PO DAILY 12/24/22 05/10/23 History metoprolol succinate 50 mg 50 mg PO DAILY 12/24/22 05/10/23 History tablet,extended release 24 hr isosorbide mononitrate 30 mg 30 mg PO DAILY 05/10/23 05/10/23 History tablet,extended release 24 hr Allergies Allergy/AdvReac Type Severity Reaction Status Date / Time No Known Allergies Allergy Verified 05/10/23 22:10 Vital Signs Vital Signs - 24 hr
[2023-05-10 22:59] LABS: Troponin I 0.027 ng/mL (0.000-0.034)
[2023-05-10] MEDS: KCL 20 MEQ/D5/0.45% SOD CHL 1,000 ML 75 ML IV CONT (23:08)
[2023-05-11] VITALS (13 sets, daily range): BP systolic 101–138; BP diastolic 47–62; PULSE 54–73; RESP 14–18; TEMP 36.3–37.9; O2SAT 95–99
[2023-05-11] MEDS: PIPERACILLIN/TAZ 2.25G/NS 50ML 2.25 GM/50 ML BAG IVPB ×4 (02:07→20:43)
[2023-05-11 02:17] LABS: Basophils Percent Auto 0.4 % (0.2-1.2); Eosinophils Percent Auto 0.1 % (0-4.4); Hematocrit 36.7 % (42.0-52.0); Hemoglobin 12.1 g/dL (14.0-18.0); Immature Granulocyte Absolute 0.07 K/mm3 (0.00-0.031); Immature Granulocyte Percent A 0.8 % (0-0.5); Immature Platelet Fraction Pct 7.2 % (0.9-11.2); Lymphocytes Absolute Auto 0.94 K/mm3 (0.9-3.2); Mean Corpuscular Hemoglobin 29.7 pg (26-34); Mean Corpuscular Volume 90.2 fl (80-100); Mean Platelet Volume 10.9 fl (7.4-10.4); Monocytes Absolute Auto 0.7 K/mm3 (0.1-0.6); Monocytes Percent Auto 8.1 % (2.6-8.5); Neutrophils Absolute Auto 6.8 K/mm3 (1.3-6.7); Neutrophils Percent Auto 79.6 % (45.5-73.1); Platelet Count Result 138 k/mm3 (150-375); Red Blood Count 4.07 M/mm3 (4.6-6.20); Red Cell Distribution Width 13.2 % (11.5-14.5); White Blood Count 8.6 K/mm3 (4.5-10.0)
[2023-05-11 02:46] LABS: Anion Gap 5 mmol/L (8-16); Blood Urea Nitrogen 14 mg/dL (9-20); Calcium 6.8 mg/dL (8.4-10.2); Carbon Dioxide 19 mmol/L (22-30); Chloride 106 mmol/L (98-107); Estimated CRCL calculation 47 ml/min; Estimated Glomerular Filt Rate > 60; Glucose 151 mg/dL (65-110); Magnesium 1.6 mg/dL (1.6-2.3); Phosphorus 3.7 mg/dL (2.5-4.5); Potassium 3.8 mmol/L (3.4-5.0); Sodium 130 mmol/L (137-145)
[2023-05-11 03:15] LABS: Troponin I 0.042 ng/mL (0.000-0.034)
--- NOTE | 2023-05-11 08:13 | PM.IMPN ---
Progress Note: A&P Assessment and Plan (1) SIRS (systemic inflammatory response syndrome): Code(s): R65.10 - Systemic inflammatory response syndrome (SIRS) of non-infectious origin without acute organ dysfunction Status: Acute Assessment and Plan: Likely from colitis, continue Zosyn GI consult placed and pending (2) Hyperthermia: Code(s): R50.9 - Fever, unspecified Status: Acute Assessment and Plan: See above (3) History of coronary artery stent placement: Code(s): Z95.5 - Presence of coronary angioplasty implant and graft Status: Acute (4) Coronary artery disease: Qualifiers: Associated angina: with stable angina Coronary Disease-Associated Artery/Lesion type: [place] artery [place] vs. transplanted heart: [place] heart Qualified Code(s): I25.118 - Atherosclerotic heart disease of [place] coronary artery with other forms of angina pectoris Code(s): I25.10 - Atherosclerotic heart disease of [place] coronary artery without angina pectoris Status: Acute Assessment and Plan: Continue home aspirin and Plavix, Lipitor Elevated troponin noted, check echo, consult cardio (5) History of stroke: Code(s): Z86.73 - Personal history of transient ischemic attack (TIA), and cerebral infarction without residual deficits Status: Acute (6) Personal history of colonic polyps: Code(s): Z86.010 - Personal history of colonic polyps Status: Acute (7) Former smoker: Code(s): Z87.891 - Personal history of nicotine dependence Status: Acute (8) Hypertension: Code(s): I10 - Essential (primary) hypertension Status: Acute Assessment and Plan: Blood pressures reviewed 05/11 Continue lisinopril Plan DVT prophylaxis with SCDs GI prophylaxis not indicated Code status full code Subjective Date/time seen: 05/11/23 08:13 Interval history: 78-year-old male with history of she stroke and coronary stenosis status post stent 2020, presenting with malaise, nausea, vomiting and diarrhea currently being treated for sepsis possibly from colitis. No overnight events noted. No chest pain or shortness of breath. No nausea, vomiting or diarrhea. No fevers or chills. Review of Systems Review of Systems: 12 point review of systems was assessed and was negative except as noted in the HPI Exam Narrative: General: No acute distress, alert and oriented per baseline HEENT: Atraumatic, normocephalic, mucous membranes moist CV: Regular rate and rhythm, S1, S2 Lungs: Clear to auscultation bilaterally, no rales or crackles noted, no wheezes, good air entry Abdomen: Soft, nontender, nondistended Extremities: Normal to inspection Skin: No rashes noted, no lesions or wounds seen Psych: Euthymic, normal affect Objective Data Vital Signs Vital Signs: Vital Signs - 24 hr 05/10/23 18:42 05/10/23 19:16 05/10/23 19:21 Temperature 105.6 F H 104.7 F H 102.6 F H Pulse Rate 85 81 Respiratory Rate 18 21 H Blood Pressure 147/82 H 155/69 H Pulse Oximetry 89 L 95 Oxygen Delivery Room Air Oxygen Flow Rate 05/10/23 20:00 05/10/23 20:26 05/10/23 21:09 Temperature 101.5 F H 100.7 F H Pulse Rate 85 79 69 Respiratory Rate 20 12 Blood Pressure 118/50 L 109/55 L Pulse Oximetry 95 95 Oxygen Delivery Oxygen Flow Rate 05/10/23 21:15 05/10/23 21:14 05/10/23 21:26 Temperature 100.6 F H 100.4 F H Pulse Rate 72 Respiratory Rate 18 Blood Pressure 113/60 Pulse Oximetry 93 90 Oxygen Delivery Room Air Oxygen Flow Rate 05/10/23 21:46 05/10/23 21:47 05/10/23 22:20 Temperature 100.2 F H 98.4 F Pulse Rate 69 65 Respiratory Rate 18 16 Blood Pressure 109/50 L 106/48 L Pulse Oximetry 95 97 97 Oxygen Delivery Nasal Cannula Oxygen Flow Rate 1 05/10/23 22:28 05/11/23 00:00 05/11/23 00:00 Temperature 97.8 F Pulse Rate 61 69 Respiratory Rate 1
[2023-05-11] MEDS: ISOSORBIDE MONONITRATE 30 MG TAB.ER.24H PO (08:20)
[2023-05-11] MEDS: METOPROLOL SUCCINATE EXT REL 50 MG TABCR PO (08:20)
[2023-05-11] MEDS: CLOPIDOGREL BISULFATE 75 MG TABLET PO (08:20)
[2023-05-11] MEDS: ASPIRIN 81 MG ENTERIC TABLET PO (08:20)
[2023-05-11] MEDS: lisinopriL 20 MG TABLET 40 MG PO (08:21)
[2023-05-11] MEDS: ATORVASTATIN 40 MG TABLET PO (08:21)
[2023-05-11 12:23] LABS: Troponin I 0.103 ng/mL (0.000-0.034)
--- NOTE | 2023-05-11 12:45 | ECG_ITS ---
Measurements Intervals [place] Rate: 64 P: 42 MT: 167 QRS: 16 QRSD: 113 T: 6 QT: 391 QTc: 403 Interpretive Statements SINUS RHYTHM MODERATE INTRAVENTRICULAR CONDUCTION DELAY [110+ ms QRS DURATION] NONSPECIFIC T-WAVE ABNORMALITY ABNORMAL ECG COMPARED TO ECG 05/10/2023 18:40:33 INTRAVENTRICULAR CONDUCTION DELAY NOW PRESENT Electronically Signed On 05-11-2023 13:41:13 CDT by Arsh Benavides M.D.
[2023-05-11] MEDS: KCL 20 MEQ/D5/0.45% SOD CHL 1,000 ML 75 ML IV CONT (13:32)
--- NOTE | 2023-05-11 15:33 | WPDGICN ---
Assessment and Plan Assessment and plan (1) Abnormal CT scan, gastrointestinal tract: Code(s): R93.3 - Abnormal findings on diagnostic imaging of other parts of digestive tract Status: Acute Assessment and Plan: CT scan here shows possible colitis. There is mild diffuse colonic wall edema also mentioned is moderate distal esophageal and gastric wall edema (2) SIRS (systemic inflammatory response syndrome): Code(s): R65.10 - Systemic inflammatory response syndrome (SIRS) of non-infectious origin without acute organ dysfunction Status: Acute Assessment and Plan: he has a fever of unknown origin. He was 105.6 on arrival. (3) Fever: Code(s): R50.9 - Fever, unspecified Status: Acute Assessment and Plan: His temp has come down from 105.6 to normal, 36.6 centigrade at the present time Plan he is being treated for fever. He is due for colonoscopy. At this point I do not think that the changes on CT scan explain his SIRS. colonoscopy can be done as an outpatient after discharge, unless he develops symptoms that would warrant doing it emergently. GI Consult Note Consult date/time: 05/11/23 15:33 HPI: Foreign Wilks is a 78 year old male who presented to the emergency room yesterday with altered mental status fever, shakes and chills. He also had been vomiting yesterday. Until yesterday morning apparently he had felt well. He had no pain. He states that he has not been coughing. His temperature was 105.6? on arrival. He was given 3 L of IV fluids rapidly. He has CT scan that showed possible colitis. He states his bowel movements are fairly normal but generally soft. He has not had blood in his stools. He has not had abdominal cramping or pain. His last colonoscopy was about 15 years ago. He states that at that time he had diverticulosis and possible colitis. I do not have those old records to verify Review of Systems Review of Systems: All systems reviewed & are unremarkable except as noted in HPI and below [facility] Past Medical History Medical History BMI 27.0-27.9,adult Heel pain History of stroke Hypertension Right rotator cuff tear Right shoulder pain 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 ballooned 08.30.19 Surgical History Surgical History History of appendectomy History of shoulder surgery (~2000) R RTC repair 2000 [place] Family History Family History Mother Patient's mother is , Onset Age: 81 Father Patient's father is , Onset Age: 80 Family history of emphysema Sibling Carcinoma of colon, Onset Age: 67 Family history of gastrointestinal disorder Family history of cardiovascular disease Family history of malignant neoplasm of breast Family history of lymphoma Family history of malignant neoplasm of thyroid Family history of malignant neoplasm of urinary bladder Social History Social History Smoking packs per day: 0.5 Smoking cigarettes per day: 10.0 Years smoked: 54 Smoking pack-years: 27.00 Smoking status: Former smoker Tobacco type: cigarettes Smoking end date: 08/03/11 Alcohol intake: never Alcohol use details: Occasional Substance use: never Lack of Transportation: No Lack of Food: Never True Current Housing: I Have Housing Concerned About Future Housing: No Difficulty Paying Gas/Electric Bills: No Difficulty Paying for Meds: No Currently Unemployed: No Education: High School Diploma/GED Difficulty w/ Childcare or Family Care: No Living arrangements: with family Additional living arrangements comments: Spouse- Jacqueline Wilks Occupation/Education: occupation Additional occupation/education comments: Self
[2023-05-11] MEDS: ACETAMINOPHEN 325 MG TABLET 650 MG PO ×2 (16:44→20:45)
[2023-05-11 17:00] LABS: Troponin I 0.085 ng/mL (0.000-0.034)
--- NOTE | 2023-05-11 18:55 | PC.NURSE ---
Troponin's to be drawn every 4-6 hours until trending down per Dr. Keys.
[2023-05-11 21:04] LABS: Troponin I 0.091 ng/mL (0.000-0.034)
[2023-05-12] VITALS (14 sets, daily range): BP systolic 135–160; BP diastolic 51–76; PULSE 58–81; RESP 14–20; TEMP 35.9–38.5; O2SAT 95–98
--- NOTE | 2023-05-12 | ECHO_ITS ---
Patient Info Name: Foreign Wilks Age: 78 years : 1945 Gender: Male Ht: 67 in Wt: 160 lbs BSA: 1.86 m2 HR: 68 bpm BP: 135 / 59 mmHg Heart Rhythm: Sinus Rhythm Technical Quality: Good Exam Date: 05/12/2023 8:50 AM Exam Location: [facility] Card Pulmonary Patient Status: Inpatient Admit Date: 05/11/2023 Staff Ordering Physician: Darcie Keys DO Pulmonologist/Intensivist: Jose Cruz RDCS Attending Provider: Artemio Ray MD Referring Physician: Ludmila BRUMFIELD; Exam Type: CA echo dop color flow w con Study Info Indications - SOB, Elevated troponin Complete two-dimensional, color flow and Doppler transthoracic echocardiogram is performed with contrast to opacify the left ventricle and to improve the deliniation of the left ventricle endocardial borders. Contrast/Agitated Saline Contrast/Ag. Saline: Definity Amount: 3.00 ml Summary 1. Left ventricular chamber dimension is normal. 2. Left ventricular systolic function is normal, estimated at 65-70%. 3. There is mildly increased left ventricular wall thickness. 4. The left ventricular diastolic function is grade I diastolic dysfunction. 5. Left atrial chamber dimension is mildly enlarged. 6. There is mild mitral valve regurgitation. 7. The mitral valve has thickened leaflets. Left Ventricle Left ventricular chamber dimension is normal. Left ventricular systolic function is normal, estimated at 65-70%. There is mildly increased left ventricular wall thickness. The left ventricular diastolic function is grade I diastolic dysfunction. Right Ventricle Right ventricular chamber dimension is normal. Right ventricular systolic function is normal. Left Atria Left atrial chamber dimension is mildly enlarged. Right Atria Right atrial chamber dimension is normal. Atrial Septum Intact interatrial septum visualized by color flow imaging. Aortic Valve The aortic valve is trileaflet. There is mild aortic valve sclerosis. There is no aortic valve stenosis. There is trace aortic valve regurgitation. Pulmonic Valve The pulmonic valve is normal. There is no pulmonic valve stenosis. There is trace pulmonic regurgitation. Mitral Valve The mitral valve has thickened leaflets. There is no mitral valve stenosis. There is mild mitral valve regurgitation. Tricuspid Valve The tricuspid valve leaflets are normal. There is no significant tricuspid valve stenosis. There is trace tricuspid valve regurgitation. No pulmonary hypertension, estimated pulmonary arterial systolic pressure is 16 mmHg. Pericardium/Pleural The pericardium appears normal. There is no pericardial effusion. Inferior Vena Cava Normal inferior vena cava with >50% collapse upon inspiration consistent with normal right atrial pressure, 10 mmHg. Aorta The aortic root size at the sinus of Valsalva is normal. Left Ventricular Outflow Tract Name Value Normal LVOT 2D LVOT Diameter 2.02 cm LVOT Doppler LVOT Peak Gradient 4 mmHg LVOT Mean Gradient 2 mmHg LVOT VTI 22.40 cm LVOT VTI/AV VTI Ratio 0.69 LVOT Stroke Volume
[2023-05-12] MEDS: PIPERACILLIN/TAZ 2.25G/NS 50ML 2.25 GM/50 ML BAG IVPB ×4 (01:08→19:44)
[2023-05-12 05:51] LABS: Basophils Absolute Auto 0.1 K/mm3 (0.0-0.1); Eosinophils Percent Auto 0.8 % (0-4.4); Hematocrit 41.1 % (42.0-52.0); Hemoglobin 13.3 g/dL (14.0-18.0); Immature Granulocyte Absolute 0.02 K/mm3 (0.00-0.031); Immature Granulocyte Percent A 0.4 % (0-0.5); Immature Platelet Fraction Pct 7.1 % (0.9-11.2); Lymphocytes Absolute Auto 0.73 K/mm3 (0.9-3.2); Lymphocytes Percent Auto 14.3 % (18.3-44.2); Mean Corpuscular HGB Conc 32.4 g/dl (32-36); Mean Corpuscular Hemoglobin 29.6 pg (26-34); Mean Corpuscular Volume 91.3 fl (80-100); Mean Platelet Volume 11.3 fl (7.4-10.4); Monocytes Absolute Auto 0.5 K/mm3 (0.1-0.6); Monocytes Percent Auto 8.8 % (2.6-8.5); Neutrophils Absolute Auto 3.8 K/mm3 (1.3-6.7); Neutrophils Percent Auto 74.7 % (45.5-73.1); Platelet Count Result 120 k/mm3 (150-375); Red Cell Distribution Width 13.7 % (11.5-14.5); White Blood Count 5.1 K/mm3 (4.5-10.0)
[2023-05-12 06:01] LABS: Alanine Aminotransferase 23 U/L (6-50); Albumin Level 2.9 g/dL (3.5-5.1); Alkaline Phosphatase 51 U/L (38-126); Anion Gap 4 mmol/L (8-16); Aspartate Amino Transferase 29 U/L (17-59); Bilirubin,Total 0.9 mg/dL (0.2-1.3); Blood Urea Nitrogen 10 mg/dL (9-20); Calcium 7.7 mg/dL (8.4-10.2); Carbon Dioxide 20 mmol/L (22-30); Chloride 111 mmol/L (98-107); Estimated CRCL calculation 51 ml/min; Estimated Glomerular Filt Rate > 60; Glucose 101 mg/dL (65-110); Potassium 3.9 mmol/L (3.4-5.0); Sodium 135 mmol/L (137-145)
[2023-05-12 06:15] LABS: Troponin I 0.053 ng/mL (0.000-0.034)
[2023-05-12] MEDS: lisinopriL 20 MG TABLET 40 MG PO (08:27)
[2023-05-12] MEDS: ISOSORBIDE MONONITRATE 30 MG TAB.ER.24H PO (08:27)
[2023-05-12] MEDS: METOPROLOL SUCCINATE EXT REL 50 MG TABCR PO (08:27)
[2023-05-12] MEDS: CLOPIDOGREL BISULFATE 75 MG TABLET PO (08:28)
[2023-05-12] MEDS: ATORVASTATIN 40 MG TABLET PO (08:28)
[2023-05-12] MEDS: ASPIRIN 81 MG ENTERIC TABLET PO (08:28)
[2023-05-12] MEDS: ACETAMINOPHEN 325 MG TABLET 650 MG PO ×2 (08:32→18:21)
--- NOTE | 2023-05-12 08:46 | PM.CNCAR ---
Assessment and Plan Assessment and plan (1) Coronary artery disease: Qualifiers: Coronary Disease-Associated Artery/Lesion type: [place] artery [place] vs. transplanted heart: [place] heart Associated angina: with stable angina Qualified Code(s): I25.118 - Atherosclerotic heart disease of [place] coronary artery with other forms of angina pectoris Code(s): I25.10 - Atherosclerotic heart disease of [place] coronary artery without angina pectoris Status: Acute Assessment and Plan: History of coronary artery disease with stenting to the RCA in 2018 with 3 stenosis of the stent in 2020 addressed with balloon angioplasty. He has been stable from a cardiac perspective since that time. He does endorse some occasional exertional angina with activity at work. Free from any chest pain at this time. Will arrange for outpatient stress testing in our office. Continue ASA, plavix, statin. (2) Elevated troponin: Code(s): R79.89 - Other specified abnormal findings of blood chemistry Status: Acute Assessment and Plan: Troponin levels were sampled during initial workup and were minimally elevated, essentially flat, and have trended down. He is denying any chest pain. His preliminary blood cultures are positive for gram neg bacilli - troponin likely elevated secondary to sepsis. As above, can arrange for outpatient stress testing. Echo was ordered and will be reviewed. History of Present Illness History of Present Illness Consult date/time: 05/12/23 08:46 Requesting physician: Darcie Keys DO Consult reason: Other (elevated trops) Reason For Visit: SIRS Narrative: Mr. Wilks is a 78 year old male with coronary artery disease with stenting to the RCA in 2018 and subsequent stenosis to the RCA stent that was redilated in 2019. He presents to the hospital because of a high fever. His temperature on presentation was 105.6. He had been experiencing some chills at home for about a day but no other symptoms. He denies having any chest pain. 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 He does endorse occasional chest tightness with his activity at work. He denies shortness of breath but family who is in the room at the time of my visit with him states that he is been experiencing some dyspnea with exertion and weakness/fatigue. He denies any swelling. He has no complaints at this time. Cardiology is being asked to see him because troponin levels were drawn and were elevated. Review of Systems Review of Systems: All systems reviewed & are unremarkable except as noted in HPI and below [facility] Past Medical History Medical History BMI 27.0-27.9,adult Heel pain History of stroke Hypertension Right rotator cuff tear Right shoulder pain 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 ballooned 1.28.20 Surgical History Surgical History History of appendectomy History of shoulder surgery (~2000) R RTC repair 2000 [place] Family History Family History Mother Patient's mother is , Onset Age: 81 Father Patient's father is , Onset Age: 80 Family history of emphysema Sibling Carcinoma of colon, Onset Age: 67 Family history of gastrointestinal disorder Family history of cardiovascular disease Family history of malignant neoplasm of breast Family history of lymphoma Family history of malignant neoplasm of thyroid Family history of malignant neoplasm of urinary bladder Social History Social History Smoking packs per day: 0.5 Smoking cigarettes per day: 10.0 Years smoked: 54 Smoking pack-years: 27.00 Smoking status: Former smoker Tobacco type: cigarettes Smoking end
[2023-05-12] MEDS: PERFLUTREN LIPID MICROSPHERES 1.5 ML VIAL DILUTED TO 10 ML TOTAL VOLUME IV PUSH (08:50)
--- NOTE | 2023-05-12 11:06 | PM.IMPN ---
Progress Note: A&P Assessment and Plan (1) SIRS (systemic inflammatory response syndrome): Code(s): R65.10 - Systemic inflammatory response syndrome (SIRS) of non-infectious origin without acute organ dysfunction Status: Acute Assessment and Plan: Gram-negative bacilli bacteremia, continue Zosyn, unsure of etiology, could be contaminant, repeat blood cultures pending, suspect underlying viral gastroenteritis? GI consult placed, does not think colitis is the etiology (2) Hyperthermia: Code(s): R50.9 - Fever, unspecified Status: Acute Assessment and Plan: See above, likely GI source (3) History of coronary artery stent placement: Code(s): Z95.5 - Presence of coronary angioplasty implant and graft Status: Acute (4) Coronary artery disease: Qualifiers: Associated angina: with stable angina Coronary Disease-Associated Artery/Lesion type: [place] artery [place] vs. transplanted heart: [place] heart Qualified Code(s): I25.118 - Atherosclerotic heart disease of [place] coronary artery with other forms of angina pectoris Code(s): I25.10 - Atherosclerotic heart disease of [place] coronary artery without angina pectoris Status: Acute Assessment and Plan: Continue home aspirin and Plavix, Lipitor Elevated troponin noted, check echo, report pending Appreciate cardiology consult, outpatient stress test arranged (5) History of stroke: Code(s): Z86.73 - Personal history of transient ischemic attack (TIA), and cerebral infarction without residual deficits Status: Acute (6) Personal history of colonic polyps: Code(s): Z86.010 - Personal history of colonic polyps Status: Acute (7) Former smoker: Code(s): Z87.891 - Personal history of nicotine dependence Status: Acute (8) Hypertension: Code(s): I10 - Essential (primary) hypertension Status: Acute Assessment and Plan: Blood pressures reviewed 05/12 Continue lisinopril (9) Bacteremia: Code(s): R78.81 - Bacteremia Status: Acute Assessment and Plan: 1 of 4 blood cultures positive for Gram-negative bacilli in the anaerobic bottle, sensitivity pending MRSA culture negative Repeat blood cultures ordered and pending Plan DVT prophylaxis with SCDs GI prophylaxis not indicated Code status full code Subjective Date/time seen: 05/12/23 11:06 Interval history: 78-year-old male with history of she stroke and coronary stenosis status post stent 2020, presenting with malaise, nausea, vomiting and diarrhea currently being treated for sepsis possibly from colitis. No overnight events noted. No chest pain or shortness of breath. No nausea, vomiting or diarrhea. T-max of a 100.2? overnight, improved from previous night. Review of Systems Review of Systems: 12 point review of systems was assessed and was negative except as noted in the HPI Exam Narrative: General: No acute distress, alert and oriented per baseline HEENT: Atraumatic, normocephalic, mucous membranes moist CV: Regular rate and rhythm, S1, S2 Lungs: Clear to auscultation bilaterally, no rales or crackles noted, no wheezes, good air entry Abdomen: Soft, nontender, nondistended Extremities: Normal to inspection Skin: No rashes noted, no lesions or wounds seen Psych: Euthymic, normal affect Objective Data Vital Signs Vital Signs: Vital Signs - 24 hr 05/11/23 11:50 05/11/23 12:00 05/11/23 16:00 Temperature 97.8 F 100.2 F H Pulse Rate 63 59 L 73 Respiratory Rate 14 14 Blood Pressure 138/60 101/57 L Pulse Oximetry 97 96 Oxygen Delivery 05/11/23 16:44 05/11/23 16:00 05/11/23 19:48 Temperature 100.2 F H 98.6 F Pulse Rate 73 72 Respiratory Rate 18 Blood Pressure 132/47 L Pulse Oximetry 96 Oxygen Delivery 05/11/23 20:00 05/12/23 00:00 05/11/23 20:00 Temperature 97.8 F Pulse Rate 61 73 Respirato
--- NOTE | 2023-05-12 13:10 | ECG_ITS ---
Measurements Intervals [place] Rate: 68 P: 46 PA: 160 QRS: 29 QRSD: 87 T: 15 QT: 384 QTc: 410 Interpretive Statements SINUS RHYTHM COMPARED TO ECG 05/11/2023 12:58:20 NO SIGNIFICANT CHANGES Electronically Signed On 05-12-2023 16:34:57 CDT by Hortencia Smith M.D.
--- NOTE | 2023-05-12 14:11 | PC.NURSE ---
On 05/12/23, the student, [Eder Iniguez], provided care and completed [facility] documentation on this patient. I have reviewed the student's documentation and agree with the findings.
[2023-05-13] VITALS (14 sets, daily range): BP systolic 121–152; BP diastolic 60–70; PULSE 64–77; RESP 16–20; TEMP 36.5–37.5; O2SAT 94–98
[2023-05-13] MEDS: PIPERACILLIN/TAZ 2.25G/NS 50ML 2.25 GM/50 ML BAG IVPB ×4 (01:53→20:11)
[2023-05-13 05:47] LABS: Basophils Percent Auto 0.6 % (0.2-1.2); Eosinophils Absolute Auto 0.1 K/mm3 (0-0.3); Eosinophils Percent Auto 1.3 % (0-4.4); Hemoglobin 13.2 g/dL (14.0-18.0); Immature Granulocyte Absolute 0.01 K/mm3 (0.00-0.031); Immature Granulocyte Percent A 0.2 % (0-0.5); Immature Platelet Fraction Pct 8.2 % (0.9-11.2); Lymphocytes Absolute Auto 1.17 K/mm3 (0.9-3.2); Lymphocytes Percent Auto 22.2 % (18.3-44.2); Mean Corpuscular HGB Conc 33.8 g/dl (32-36); Mean Corpuscular Hemoglobin 30.1 pg (26-34); Mean Corpuscular Volume 88.8 fl (80-100); Mean Platelet Volume 11.6 fl (7.4-10.4); Monocytes Absolute Auto 0.5 K/mm3 (0.1-0.6); Monocytes Percent Auto 9.5 % (2.6-8.5); Neutrophils Absolute Auto 3.5 K/mm3 (1.3-6.7); Neutrophils Percent Auto 66.2 % (45.5-73.1); Platelet Count Result 132 k/mm3 (150-375); Red Blood Count 4.39 M/mm3 (4.6-6.20); Red Cell Distribution Width 13.3 % (11.5-14.5); White Blood Count 5.3 K/mm3 (4.5-10.0)
[2023-05-13 06:02] LABS: Alanine Aminotransferase 28 U/L (6-50); Albumin Level 2.9 g/dL (3.5-5.1); Alkaline Phosphatase 62 U/L (38-126); Anion Gap 5 mmol/L (8-16); Aspartate Amino Transferase 34 U/L (17-59); Bilirubin,Total 0.8 mg/dL (0.2-1.3); Blood Urea Nitrogen 7 mg/dL (9-20); Calcium 7.9 mg/dL (8.4-10.2); Carbon Dioxide 23 mmol/L (22-30); Chloride 105 mmol/L (98-107); Estimated CRCL calculation 51 ml/min; Estimated Glomerular Filt Rate > 60; Glucose 97 mg/dL (65-110); Potassium 3.8 mmol/L (3.4-5.0); Sodium 133 mmol/L (137-145)
--- NOTE | 2023-05-13 07:12 | WPDGIPROGNO ---
Progress Note: A&P Assessment and Plan (1) Abnormal CT scan, gastrointestinal tract: Code(s): R93.3 - Abnormal findings on diagnostic imaging of other parts of digestive tract Status: Acute Assessment and Plan: CT scan here shows 'possible colitis'. There is mild diffuse colonic wall edema also mentioned is moderate distal esophageal and gastric wall edema 05/13/2023 he has had no diarrhea, no cramping or blood in his stool. I doubt that the mild edema seen on CT reflects any serious colon inflammation. From my perspective he can be discharged any time. (2) SIRS (systemic inflammatory response syndrome): Code(s): R65.10 - Systemic inflammatory response syndrome (SIRS) of non-infectious origin without acute organ dysfunction Status: Acute Assessment and Plan: he has a fever of unknown origin. He was 105.6 on arrival. (3) Fever: Code(s): R50.9 - Fever, unspecified Status: Acute Assessment and Plan: His temp has come down from 105.6 to normal, 36.6 centigrade at the present time 06/25 remains afebrile. Plan he is being treated for fever. He is due for colonoscopy. At this point I do not think that the changes on CT scan explain his SIRS. colonoscopy can be done as an outpatient after discharge, unless he develops symptoms that would warrant doing it emergently. Subjective Date/time seen: 05/13/23 07:12 He does not sleep well. He has no gastrointestinal complaints. He denies diarrhea he had a small bowel movement earlier which was brown. He denies abdominal pain or cramping. He had a poor appetite last night for supper. The denies nausea or vomiting at this time. Exam Const: General: cooperative and healthy appearing Orientation/consciousness: patient oriented x3 HENMT: Head: normal to inspection Ears: hearing grossly normal bilaterally Mouth: Yes Normal oral and palatal mucosa present Eyes: General: appearance normal, both eyes and all related structures Neck: Neck: normal visual inspection Chest: Chest palpation & inspection: normal inspection of the chest Resp: Effort & Inspection: normal respiratory effort Auscultation: clear to auscultation bilaterally Cardio: Rate: regular rate Rhythm: regular rhythm GI: Inspection: normal to inspection GI Palp: Yes Soft to palpation, No Tenderness to palpation present (GI), No Guarding due to palpation present (GI) and Yes No hepatosplenomegaly present Auscultation: normal bowel sounds Skin: General skin exam: normal color and no jaundice Neuro: General: patient oriented x3 Speech: normal speech Objective Data Vital Signs Vital Signs: Vital Signs - 24 hr 05/12/23 07:33 05/12/23 08:27 05/12/23 10:00 Temperature 37.1 C Pulse Rate 66 66 Respiratory Rate 20 Blood Pressure 150/76 H Pulse Oximetry 96 Oxygen Delivery Room Air 05/12/23 11:58 05/12/23 12:00 05/12/23 15:56 Temperature 36.5 C 35.9 C L Pulse Rate 65 65 65 Respiratory Rate 18 14 Blood Pressure 136/65 160/62 H Pulse Oximetry 98 97 Oxygen Delivery 05/12/23 16:00 05/12/23 08:00 05/12/23 18:21 Temperature 38.5 C H Pulse Rate 66 81 Respiratory Rate Blood Pressure Pulse Oximetry Oxygen Delivery 05/12/23 19:30 05/12/23 20:43 05/12/23 20:00 Temperature 36.9 C 37.1 C Pulse Rate 71 71 Respiratory Rate 18 Blood Pressure 149/63 H Pulse Oximetry 97 Oxygen Delivery 05/12/23 22:00 05/13/23 00:00 05/13/23 01:00 Temperature 36.7 C 37.4 C Pulse Rate 70 Respiratory Rate Blood Pressure Pulse Oximetry Oxygen Delivery 05/13/23 01:57 05/13/23 03:20 05/13/23 00:45 Temperature 37.4 C 37.5 C 36.9 C Pulse Rate 77 Respiratory Rate 16 Blood Pressure 152/60 H Pulse Oximetry 94 Oxygen Delivery 05/13/23 04:00 05/13/23 07:10 Temperature 37.1 C Pulse Rate 68 71 Respiratory Rate 18 Blood Pressure 149/63 H Pulse Oximetry 97 Oxygen Deli
[2023-05-13] MEDS: ATORVASTATIN 40 MG TABLET PO (08:55)
[2023-05-13] MEDS: lisinopriL 20 MG TABLET 40 MG PO (08:55)
[2023-05-13] MEDS: ASPIRIN 81 MG ENTERIC TABLET PO (08:55)
[2023-05-13] MEDS: METOPROLOL SUCCINATE EXT REL 50 MG TABCR PO (08:55)
[2023-05-13] MEDS: CLOPIDOGREL BISULFATE 75 MG TABLET PO (08:56)
[2023-05-13] MEDS: ISOSORBIDE MONONITRATE 30 MG TAB.ER.24H PO (08:56)
--- NOTE | 2023-05-13 13:03 | PM.PNCARD ---
Progress Note: A&P Assessment and Plan (1) Coronary artery disease: Qualifiers: Coronary Disease-Associated Artery/Lesion type: [place] artery [place] vs. transplanted heart: [place] heart Associated angina: with stable angina Qualified Code(s): I25.118 - Atherosclerotic heart disease of [place] coronary artery with other forms of angina pectoris Code(s): I25.10 - Atherosclerotic heart disease of [place] coronary artery without angina pectoris Status: Acute Assessment and Plan: History of coronary artery disease with stenting to the RCA in 2018 with 3 stenosis of the stent in 2019 addressed with balloon angioplasty. He has been stable from a cardiac perspective since that time. He does endorse some occasional exertional angina with activity at work. Free from any chest pain at this time. Will arrange for outpatient stress testing in our office. Continue ASA, plavix, statin. He still has no chest pain. Plan will continue to be outpatient stress test. Renal functions normal. (2) Elevated troponin: Code(s): R79.89 - Other specified abnormal findings of blood chemistry Status: Acute Assessment and Plan: Troponin levels were sampled during initial workup and were minimally elevated, essentially flat, and have trended down. He is denying any chest pain. His preliminary blood cultures are positive for gram neg bacilli - troponin likely elevated secondary to sepsis. As above, can arrange for outpatient stress testing. Echocardiogram independently interpreted?by myself showing 1. Left ventricular chamber dimension is normal. ? 2. Left ventricular systolic function is normal, estimated at 65-70%. ? 3. There is mildly increased left ventricular wall thickness. ? 4. The left ventricular diastolic function is grade I diastolic dysfunction. ? 5. Left atrial chamber dimension is mildly enlarged. ? 6. There is mild mitral valve regurgitation. ? 7. The mitral valve has thickened leaflets. Plan Okay for discharge from cardiac perspective with follow-up Dr. Espinal Subjective Date/time seen: 05/13/23 13:04 Interval history: 78-year-old male with history of she stroke and coronary stenosis status post stent 2019, presenting with malaise, nausea, vomiting and diarrhea currently being treated for sepsis possibly from colitis. Date of service 05/13/2023: He denies any chest pain shortness breath. Overall feels much better. Review of Systems Constitutional: Constitutional: Denies body ache(s) Cardiovascular: Cardiovascular: Denies chest pain Respiratory: Respiratory: Denies chest congestion Gastrointestinal: Gastrointestinal: Denies nausea Exam Const: General: comfortable, no acute distress, alert and awake Orientation/consciousness: patient oriented x3 HENMT: Head: normal to inspection Eyes: General: appearance normal, both eyes and all related structures Pupils: Equal, round and reactive pupils present Neck: Neck: normal visual inspection, supple and no JVD Carotids: normal carotid upstroke Resp: Effort & Inspection: normal respiratory effort Auscultation: clear to auscultation bilaterally Cardio: Rate: regular rate Rhythm: regular rhythm Heart sounds: S1 normal heart sound present, S2 normal heart sound present and no murmurs GI: Auscultation: normal bowel sounds Skin: General skin exam: normal color Neuro: General: patient oriented x3 Cranial nerves: Yes Equal, round and reactive pupils present Extrem: General: normal to inspection Psych: Appearance: grossly normal Mental Status: mental status grossly normal Objective Data Vital Signs Vital Signs: Vital Signs - 24 hr 05/12/23 15:56 05/12/23 16:00 05/12/23 18:21 Temperature 35.9 C L 38.5 C H Pulse Rate 65 66 Respiratory Rate 14 Blood Pressure 160/62 H Pulse Oximetry 97 Oxygen Delivery 05/12/23 19:30 05/12/23 20:43 05/12/23 20:00 Temperature 36.9 C 37.1 C Pulse Rate 71 71 Respir
[2023-05-13 15:07] LABS: CRP 6.8 mg/dL (<1.0)
--- NOTE | 2023-05-13 15:19 | PM.IMPN ---
Progress Note: A&P Assessment and Plan (1) Sepsis: Code(s): A41.9 - Sepsis, unspecified organism Status: Acute Assessment and Plan: Patient presents with high fevers and AMS related to infectious etiology but normal lactic, WBC and heart rate. UA not consistent with UTI. CT Ch/A/P: moderate esophagitis/gastritis, GB hydrops and mild diffuse colonic wall edema. UCx negative BCx 10: EColi 2/2 bottles. BCx 10/: NGTD Patient started on Zosyn. GI consult placed, does not think colitis is the etiology. Consider GB as source. Check RUQ US. (2) Bacteremia: Code(s): R78.81 - Bacteremia Status: Acute Assessment and Plan: 1 of 4 blood cultures positive for EColi, sensitivity pending MRSA culture negative Repeat blood cultures NGTD (3) Elevated troponin: Code(s): R79.89 - Other specified abnormal findings of blood chemistry Status: Acute Assessment and Plan: Troponin mildly elevated but flat and are now trending down. EKG showing NSR. Echo showing EF 65-70% and Grade I diastolic dysfunction. Cardiology consulted and felt elevated Trop related to above. No further workup planned. (4) Hyperthermia: Code(s): R50.9 - Fever, unspecified Status: Acute Assessment and Plan: See above, likely GI source (5) Coronary artery disease: Qualifiers: Associated angina: with stable angina Coronary Disease-Associated Artery/Lesion type: [place] artery [place] vs. transplanted heart: [place] heart Qualified Code(s): I25.118 - Atherosclerotic heart disease of [place] coronary artery with other forms of angina pectoris Code(s): I25.10 - Atherosclerotic heart disease of [place] coronary artery without angina pectoris Status: Acute Assessment and Plan: History of CAD with stenting to the RCA in 2018 with in-stent restenosis treated with balloon angioplasty.?He has been having some occasional exertional angina with activity at work.?Cardiology will arrange for outpatient stress testing in our office. Continue home aspirin and Plavix, Lipitor Appreciate cardiology consult, outpatient stress test arranged Okay to stop tele. (6) Personal history of colonic polyps: Code(s): Z86.010 - Personal history of colonic polyps Status: Acute Assessment and Plan: Plan for outpatient colonoscopy. (7) Hypertension: Code(s): I10 - Essential (primary) hypertension Status: Acute Assessment and Plan: Patient's blood pressure was reviewed on 05/13 Blood pressure remains well controlled. Will continue to monitor Plan DVT prophylaxis with SCDs GI prophylaxis not indicated Code status full code Subjective Date/time seen: 05/13/23 15:19 Interval history: 78-year-old male with history of she stroke and coronary stenosis status post stent 2020, presenting with malaise, nausea, vomiting and diarrhea currently being treated for sepsis possibly from colitis. Assuming care. Chart reviewed. Feeling better. Walking to the BR. No CP or SOB. No n/v. No dysuria. No diarrhea. Exam Narrative: AF 98.2 124/70 74 18 97% ra Gen - NARD Chest - CTA bilaterally, nml RR CV - RRR S1/S2. Tele showing no significant dysrhythmias Abd - Soft, NT/ND, Positive BS Ext - No pedal edema Psych - Nml mood and affect Skin - Warm and dry Objective Data Vital Signs Vital Signs: Vital Signs - 24 hr 05/12/23 15:56 05/12/23 16:00 05/12/23 18:21 Temperature 96.6 F L 101.3 F H Pulse Rate 65 66 Respiratory Rate 14 Blood Pressure 160/62 H Pulse Oximetry 97 Oxygen Delivery 05/12/23 19:30 05/12/23 20:43 05/12/23 20:00 Temperature 98.5 F 98.7 F Pulse Rate 71 71 Respiratory Rate 18 Blood Pressure 149/63 H Pulse Oximetry 97 Oxygen Delivery 05/12/23 22:00 05/13/23 00:00 05/13/23 01:00 Temperature 98.1 F 99.4 F Pulse Rate 70 Respiratory Rate Blood Pressure Pulse
[2023-05-14] MEDS: PIPERACILLIN/TAZ 2.25G/NS 50ML 2.25 GM/50 ML BAG IVPB ×3 (01:16→13:11)
[2023-05-14 02:16] VITALS: BP 144/64; PULSE 72; RESP 16; TEMP 36.4; O2SAT 94
[2023-05-14 06:00] VITALS: BP 150/67; PULSE 67; RESP 18; TEMP 36.3; O2SAT 95
[2023-05-14 08:00] VITALS: O2SAT 95
[2023-05-14] MEDS: ISOSORBIDE MONONITRATE 30 MG TAB.ER.24H PO (08:43)
[2023-05-14] MEDS: ATORVASTATIN 40 MG TABLET PO (08:43)
[2023-05-14] MEDS: ASPIRIN 81 MG ENTERIC TABLET PO (08:43)
[2023-05-14] MEDS: CLOPIDOGREL BISULFATE 75 MG TABLET PO (08:43)
[2023-05-14 08:44] VITALS: PULSE 77
[2023-05-14] MEDS: METOPROLOL SUCCINATE EXT REL 50 MG TABCR PO (08:44)
[2023-05-14] MEDS: lisinopriL 20 MG TABLET 40 MG PO (08:44)
[2023-05-14 12:00] VITALS: BP 148/64; PULSE 64; RESP 19; TEMP 36.4; O2SAT 98
--- NOTE | 2023-05-14 15:37 | PM.DS ---
DS: Admitting Diagnosis Discharge Date 05/14/23 Admitting Diagnosis Nausea, vomiting DS: Discharge Diagnosis Discharge Diagnosis (1) Sepsis: Code(s): A41.9 - Sepsis, unspecified organism Status: Acute (2) Bacteremia: Code(s): R78.81 - Bacteremia Status: Acute (3) Elevated troponin: Code(s): R79.89 - Other specified abnormal findings of blood chemistry Status: Acute (4) Hyperthermia: Code(s): R50.9 - Fever, unspecified Status: Acute (5) Coronary artery disease: Qualifiers: Coronary Disease-Associated Artery/Lesion type: [place] artery [place] vs. transplanted heart: [place] heart Associated angina: with stable angina Qualified Code(s): I25.118 - Atherosclerotic heart disease of [place] coronary artery with other forms of angina pectoris Code(s): I25.10 - Atherosclerotic heart disease of [place] coronary artery without angina pectoris Status: Acute (6) Personal history of colonic polyps: Code(s): Z86.010 - Personal history of colonic polyps Status: Acute (7) Hypertension: Code(s): I10 - Essential (primary) hypertension Status: Acute DS: Summary Hospital Course Reason for hospitalization: 78-year-old male with history of she stroke and coronary stenosis status post stent 2020, presenting with malaise, nausea, vomiting and diarrhea currently being treated for sepsis. Please see H&P for details. Hospital Course: Patient presents with high fevers and AMS related to infectious etiology but with normal lactic, WBC and heart rate. UA not consistent with UTI. CT Ch/A/P: moderate esophagitis/gastritis, GB hydrops and mild diffuse colonic wall edema. UCx was negative. BCx growing EColi in both sets that was [place]-sensitive. Repeat BCx NGTD. Patient started on Zosyn. GI consulted and appreciate their input. Not felt to be urinary source. RUQ US showing cholelithiasis but no evidence of cholecystitis. GI did not think colitis was the etiology of the bacteremia. Troponin mildly elevated but flat and are now trending down. EKG showing NSR. Echo showing EF 65-70% and Grade I diastolic dysfunction. Cardiology consulted and felt elevated Trop related to sepsis. History of CAD with stenting to the RCA in 2018 with in-stent restenosis treated with balloon angioplasty.?He has been having some occasional exertional angina with activity at work.?Cardiology will arrange for outpatient stress testing in the office. We continued home aspirin, Plavix, Lipitor. Appreciate cardiology consult, outpatient stress test to be arranged. Gi is also planning for outpatient colonoscopy. Patient had clinical improvement. He was able to be discharged home on 05/14/23. Status at Discharge Cognitive/behavioral status at discharge: stable Time Spent with Patient Time attestation: Total time spent providing and/or coordinating discharge services: 35 minutes Time spent: Greater than 30 minutes Exam Narrative: AF 97.6 148/64 64 19 98% ra Gen - NARD Chest - CTA bilaterally, nml RR CV - RRR S1/S2 Abd - Soft, NT/ND, Positive BS Ext - No pedal edema Psych - Nml mood and affect Skin - Warm and dry DS: Data Data Completed and Pending Labs on day of discharge: Preliminary micro results at discharge 05/10/23 18:47 Blood Culture - Preliminary Blood 05/10/23 18:46 Blood Culture - Preliminary Blood Escherichia Coli 05/12/23 15:24 Blood Culture - Preliminary Blood 05/12/23 15:16 Blood Culture - Preliminary Blood Discharge Plan Discharge Attending physician on discharge: Elias Saab Consulting providers: Kin Donis; Alida Gonzales Discharging Clinician: Elias Saab Anticipated Discharge Date/Time: 05/14/23 15:45 Patient Disposition: Home, Self-Care Activity: as tolerated Diet: heart healthy Discharge Instructions: Check blood pressure 1 to 2 times a day. Record and bring into
--- NOTE | 2023-05-19 14:23 | IVDEFINITY ---
Prior to administration of IV Definity the patient was educated on the risks and benefits of the imaging enhancing agent including potential adverse side effects. The patient verbalized understanding. Allergies were verified. No exclusion criteria were identified and at least one of the following inclusion criteria were met: 1) physician request, 2) patient technically difficult to image (per the [place] [employer] Echocardi[employer] guidelines of two or more segments not discernable within the apical view), or 3) questionable left ventricular function. ?
== END 2023-05-14 16:38 | disposition home or self-care (01) | DRG 872 ==
LOC: ANHED 18:44 → ANH2MED 21:36
PROVIDERS: Internal Medicine Gastroenterology; Student in an Organized Health Care Education/Training Program; Admitting Provider Family Medicine; Emergency Provider Emergency Medicine; PCP Family Medicine; Visit Provider Internal Medicine
DX: A41.51 Sepsis due to Escherichia coli [E. coli] (principal); R50.9 Fever, unspecified; K52.9 Noninfective gastroenteritis and colitis, unspecified; K80.20 Calculus of gallbladder without cholecystitis without obstruction; I10 Essential (primary) hypertension; I25.10 Atherosclerotic heart disease of native coronary artery without angina pectoris; Z20.822 Contact with and (suspected) exposure to COVID-19; Z79.82 Long term (current) use of aspirin; Z79.02 Long term (current) use of antithrombotics/antiplatelets; Z95.5 Presence of coronary angioplasty implant and graft; Z86.010 Personal history of colon polyps; Z86.73 Personal history of transient ischemic attack (TIA), and cerebral infarction without residual deficits; Z87.891 Personal history of nicotine dependence; Z80.0 Family history of malignant neoplasm of digestive organs
CPT/HCPCS: 36415; 70450; 71260; 73630; 74177; 76705; 80048; 80053; 81001; 83605; 83690; 83735; 84100; 84484; 85025; 85055; 85610; 85730; 86140; 87040; 87077; 87081; 87186; 87636; 93005; 96365; 96366; 96367; 96375; 99285; A9270; C8929; G0378; J1885; J2405; J2543; J3370; J3480; J7030; Q9957; Q9967

== ENCOUNTER 2023-06-16 14:38 | Outpatient (CLI) | payer MEDICARE, SELFPAY ==
[2023-06-16 18:27] LABS: Kit Draw Collected
== END 2023-06-16 14:39 | disposition home or self-care (01) ==
LOC: ANHGOSHLAB 14:40
PROVIDERS: PCP Family Medicine; Visit Provider Family Medicine
DX: I25.118 Atherosclerotic heart disease of native coronary artery with other forms of angina pectoris (principal); R65.10 Systemic inflammatory response syndrome (SIRS) of non-infectious origin without acute organ dysfunction
CPT/HCPCS: 36415

== ENCOUNTER 2023-08-12 15:50 | Emergency (ER) | payer MEDICARE, SELFPAY ==
[2023-08-12] VITALS (7 sets, daily range): BP systolic 124–142; BP diastolic 58–60; PULSE 70–89; RESP 18–20; TEMP 37.3; O2SAT 94–97
--- NOTE | ~2023-08-12 | XR_ITS ---
EXAMINATION: XR chest 2V Exam Date/Time: 08/12/2023 16:22 OPTICAL GOODS DRILL OPERATOR HISTORY: cp, COUGH Comparison: 09/21/2019. RESULT: Lines, tubes, and devices: None. Lungs and pleura: Senescent change. Segmental left posterior lower lobe airspace disease, seen best in the lateral view. Granulomatous calcifications. Cardiomediastinal silhouette: Stable. Other: No acute osseous or upper abdominal finding. IMPRESSION: Segmental left posterior lobe of lower lobe pneumonia. Reviewed, dictated and finalized at location K. CAL GOODS DRILL OPERATOR
--- NOTE | 2023-08-12 15:51 | ECG_ITS ---
Measurements Intervals [place] Rate: 74 P: [place]: 0 QRS: 39 QRSD: 98 T: 49 QT: 378 QTc: 421 Interpretive Statements SINUS RHYTHM FREQUENT ATRIAL PREMATURE COMPLEXES ABNORMAL ECG COMPARED TO ECG 05/12/2023 13:51:35 ATRIAL PREMATURE COMPLEXES NOW PRESENT Electronically Signed On 08-12-2023 16:13:54 CLERICAL ADMINISTRATIVE ASSISTANT by Edson Bhardwaj D.O.
[2023-08-12 16:19] LABS: Basophils Absolute Auto 0.1 K/mm3 (0.0-0.1); Basophils Percent Auto 0.6 % (0.2-1.2); Eosinophils Percent Auto 0.1 % (0-4.4); Hematocrit 43.6 % (42.0-52.0); Hemoglobin 14.1 g/dL (14.0-18.0); Immature Granulocyte Absolute 0.03 K/mm3 (0.00-0.031); Immature Granulocyte Percent A 0.3 % (0-0.5); Lymphocytes Absolute Auto 1.23 K/mm3 (0.9-3.2); Lymphocytes Percent Auto 13.8 % (18.3-44.2); Mean Corpuscular HGB Conc 32.3 g/dl (32-36); Mean Corpuscular Hemoglobin 28.8 pg (26-34); Mean Corpuscular Volume 89.2 fl (80-100); Mean Platelet Volume 10.9 fl (7.4-10.4); Monocytes Absolute Auto 0.9 K/mm3 (0.1-0.6); Monocytes Percent Auto 9.7 % (2.6-8.5); Neutrophils Absolute Auto 6.8 K/mm3 (1.3-6.7); Neutrophils Percent Auto 75.5 % (45.5-73.1); Platelet Count Result 151 k/mm3 (150-375); Red Blood Count 4.89 M/mm3 (4.6-6.20); Red Cell Distribution Width 14.1 % (11.5-14.5); White Blood Count 8.9 K/mm3 (4.5-10.0)
[2023-08-12 16:29] LABS: Alanine Aminotransferase 27 U/L (6-50); Albumin Level 3.9 g/dL (3.5-5.1); Alkaline Phosphatase 62 U/L (38-126); Anion Gap 10 mmol/L (8-16); Aspartate Amino Transferase 38 U/L (17-59); Bilirubin,Total 0.9 mg/dL (0.2-1.3); Blood Urea Nitrogen 21 mg/dL (9-20); Calcium 8.2 mg/dL (8.4-10.2); Carbon Dioxide 23 mmol/L (22-30); Chloride 100 mmol/L (98-107); Estimated Glomerular Filt Rate > 60; Glucose 116 mg/dL (65-110); Lipase 80 U/L (23-300); Potassium 4.1 mmol/L (3.4-5.0); Sodium 133 mmol/L (137-145)
[2023-08-12 16:30] LABS: INR 1.1; Prothrombin Time 14.6 Seconds (11.1-14.7)
[2023-08-12 16:31] LABS: Partial Thromboplastin Time 34.6 SECONDS (22.3-36.8)
[2023-08-12 16:41] LABS: Troponin I < 0.012 ng/mL (0.000-0.034)
--- NOTE | 2023-08-12 19:34 | ED.SOB ---
HPI - SOB/Dyspnea General Chief Complaint: Shortness of Breath/Dyspnea Stated Complaint: chest pain/cough/fever Time Seen by Provider: 08/12/23 19:31 Source: patient Mode of arrival: ambulatory Limitations: no limitations History of Present Illness HPI Narrative: This is a 78 year old male that presents to the ER for cold symptoms present over the last couple of days. Reports cough, congestion, shortness of breath. Reports chest pain with coughing and breathing. Denies fevers. Related Data Home Medications Medication Instructions Recorded Confirmed aspirin 81 mg tablet,delayed 81 mg PO DAILY 08/30/19 07/29/23 release (Aspir-) atorvastatin 40 mg tablet 40 mg PO DAILY 08/30/19 07/29/23 clopidogrel 75 mg tablet 75 mg PO DAILY 08/30/19 07/29/23 lisinopril 40 mg tablet 40 mg PO DAILY 12/24/22 07/29/23 metoprolol succinate 50 mg 50 mg PO DAILY 12/24/22 07/29/23 tablet,extended release 24 hr isosorbide mononitrate 30 mg 30 mg PO DAILY 05/10/23 07/29/23 tablet,extended release 24 hr Allergies Allergy/AdvReac Type Severity Reaction Status Date / Time No Known Allergies Allergy Verified 06/16/23 13:55 Review of Systems Review of Systems: CONSTITUTIONAL: Denies fever ENT: Reports rhinorrhea, congestion CARDIOVASCULAR: Reports chest pain. Denies edema. RESPIRATORY: Reports cough and dyspnea. All systems reviewed & are unremarkable except as noted in HPI and below PMFSH Past Medical History Medical History BMI 27.0-27.9,adult Heel pain History of stroke Hypertension Right rotator cuff tear Right shoulder pain 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 ballooned 1.28.20 Surgical History Surgical History History of appendectomy History of shoulder surgery (~2000) R RTC repair 2000 [place] Family History Family History Mother Patient's mother is , Onset Age: 81 Father Patient's father is , Onset Age: 80 Family history of emphysema Sibling Carcinoma of colon, Onset Age: 67 Family history of gastrointestinal disorder Family history of cardiovascular disease Family history of malignant neoplasm of breast Family history of lymphoma Family history of malignant neoplasm of thyroid Family history of malignant neoplasm of urinary bladder Social History Social History (Updated 06/16/23 @ 13:56 by Vani Ross MA) Smoking packs per day: 0.5 Smoking cigarettes per day: 10.0 Years smoked: 54 Smoking pack-years: 27.00 Smoking status: Former smoker Tobacco type: cigarettes Smoking end date: 08/03/11 Alcohol intake: current Alcohol use details: Occasional Substance use: never Substance use type: does not use Lack of Transportation: No Lack of Food: Never True Current Housing: I Have Housing Concerned About Future Housing: No Difficulty Paying Gas/Electric Bills: No Difficulty Paying for Meds: No Currently Unemployed: No Education: High School Diploma/GED Difficulty w/ Childcare or Family Care: No Living arrangements: with family Additional living arrangements comments: Spouse- Jacqueline Wilks Occupation/Education: occupation Additional occupation/education comments: Self-Employed Spiritual care concerns: No Exam Narrative: GENERAL: Well-appearing, well-nourished, and in no acute distress. HEAD: Normocephalic, atraumatic. EYES: EOMI. ENT: Nares clear, no rhinorrhea or epistaxis. Mucous membranes moist. Oropharynx without tonsillar hypertrophy exudate or other lesions. Bilateral TMs pearly truong non-bulging NECK: Supple. No adenopathy or masses. CHEST: No respiratory distress. Mild expiratory wheezing. Rales in the LLL. No rhonchi HEART: Regular rate and rhythm. No murmur heard. Normal peripheral pulses. EXT
[2023-08-12] MEDS: ASPIRIN 81 MG CHEWABLE TABLET 324 MG PO (19:56)
--- NOTE | 2023-08-12 20:02 | ECG_ITS ---
Measurements Intervals [place] Rate: 75 P: 49 NH: 147 QRS: 19 QRSD: 95 T: 43 QT: 360 QTc: 403 Interpretive Statements SINUS RHYTHM NORMAL ECG COMPARED TO ECG 08/12/2023 15:55:51 NO SIGNIFICANT CHANGES Electronically Signed On 08-13-2023 6:25:33 ART CLASS MODEL by Edson Bhardwaj D.O.
[2023-08-12 20:30] LABS: D Dimer 0.29 ug/mL (<0.48)
[2023-08-12 20:36] LABS: Troponin I < 0.012 ng/mL (0.000-0.034)
[2023-08-12] MEDS: ACETAMINOPHEN 500 MG TABLET 1000 MG PO (21:08)
[2023-08-12] MEDS: IPRATROPIUM BR 0.02% INH SOLN 0.5 MG/2.5 ML VIAL INHALATION (21:37)
[2023-08-12] MEDS: ALBUTEROL SULFATE NEB 2.5 MG/3 ML INH INHALATION (21:37)
[2023-08-12 21:55] LABS: Influenza A QL RT-PCR Positive (Negative); Influenza B QL RT-PCR Negative (Negative); RSV RNA, RT-PCR Negative (Negative); SARS-CoV-2 RNA PCR Negative (Negative)
[2023-08-12] MEDS: AZITHROMYCIN 250 MG TABLET 500 MG PO (22:15)
[2023-08-12] MEDS: OSELTAMIVIR PHOSPHATE 75 MG CAPSULE PO (22:15)
[2023-08-12] MEDS: AMOXICILLIN 500 MG CAPSULE 1000 MG PO (22:15)
== END 2023-08-12 22:22 | disposition home or self-care (01) ==
PROVIDERS: Emergency Medicine; Emergency Provider Physician Assistant; PCP Family Medicine
DX: J10.1 Influenza due to other identified influenza virus with other respiratory manifestations (principal); J18.9 Pneumonia, unspecified organism; I10 Essential (primary) hypertension; Z87.891 Personal history of nicotine dependence; Z20.822 Contact with and (suspected) exposure to COVID-19
CPT/HCPCS: 36415; 71046; 80053; 83690; 84484; 85025; 85380; 85610; 85730; 87637; 93005; 94640; 99284; A9270

== ENCOUNTER 2023-08-31 14:18 | Outpatient (CLI) | payer MEDICARE, SELFPAY ==
--- NOTE | ~2023-08-31 | US_ITS ---
EXAMINATION: US venous doppler LE RT DATE: 08/31/2023 14:59 INDICATION: M79.89 - Other specified soft tissue disorders . TECHNIQUE: Grayscale images without and with compression and Doppler images of the right lower extrem ity veins were obtained. COMPARISON: None FINDINGS: The right common femoral vein, profunda (deep) femoral vein, femoral vein, popliteal vein, peroneal v ein, posterior tibial veins, gastrocnemius vein, and greater saphenous vein are patent. IMPRESSION: Patent right lower extremity veins. No evidence of deep venous thrombosis. Reviewed, dictated and finalized at location K. BRANDER
== END 2023-08-31 14:19 | disposition home or self-care (01) ==
PROVIDERS: PCP Family Medicine; Visit Provider Physician Assistant
DX: M79.89 Other specified soft tissue disorders (principal)
CPT/HCPCS: 93971

== ENCOUNTER 2023-09-01 14:59 | Outpatient (CLI) | payer MEDICARE, SELFPAY ==
[2023-09-01 16:28] LABS: Basophils Absolute Auto 0.1 K/mm3 (0.0-0.1); Basophils Percent Auto 1.3 % (0.2-1.2); Eosinophils Absolute Auto 0.2 K/mm3 (0-0.3); Eosinophils Percent Auto 2.6 % (0-4.4); Hematocrit 41.6 % (42.0-52.0); Hemoglobin 13.4 g/dL (14.0-18.0); Immature Granulocyte Absolute 0.03 K/mm3 (0.00-0.031); Immature Granulocyte Percent A 0.4 % (0-0.5); Lymphocytes Absolute Auto 3.35 K/mm3 (0.9-3.2); Lymphocytes Percent Auto 39.5 % (18.3-44.2); Mean Corpuscular HGB Conc 32.2 g/dl (32-36); Mean Corpuscular Hemoglobin 28.9 pg (26-34); Mean Corpuscular Volume 89.8 fl (80-100); Mean Platelet Volume 11.4 fl (7.4-10.4); Monocytes Absolute Auto 0.9 K/mm3 (0.1-0.6); Monocytes Percent Auto 10.2 % (2.6-8.5); Neutrophils Absolute Auto 3.9 K/mm3 (1.3-6.7); Platelet Count Result 238 k/mm3 (150-375); Red Blood Count 4.63 M/mm3 (4.6-6.20); White Blood Count 8.5 K/mm3 (4.5-10.0)
[2023-09-01 16:33] LABS: Alanine Aminotransferase 23 U/L (6-50); Albumin Level 3.6 g/dL (3.5-5.1); Alkaline Phosphatase 66 U/L (38-126); Anion Gap 3 mmol/L (8-16); Aspartate Amino Transferase 114 U/L (17-59); Bilirubin,Total 0.5 mg/dL (0.2-1.3); Blood Urea Nitrogen 24 mg/dL (9-20); Calcium 8.6 mg/dL (8.4-10.2); Carbon Dioxide 31 mmol/L (22-30); Chloride 104 mmol/L (98-107); Creatine Kinase 97 U/L (55-170); Estimated Glomerular Filt Rate 49; Glucose 115 mg/dL (65-110); Potassium 4.8 mmol/L (3.4-5.0); Sodium 138 mmol/L (137-145)
[2023-09-01 16:36] LABS: Lactic Acid Reflex 0.9 mmol/L (0.7-2.0)
== END 2023-09-01 15:00 | disposition home or self-care (01) ==
LOC: ANHGOSHLAB 15:01
PROVIDERS: PCP Family Medicine; Visit Provider Emergency Medicine
DX: M79.604 Pain in right leg (principal); I25.2 Old myocardial infarction; M79.89 Other specified soft tissue disorders
CPT/HCPCS: 36415; 80053; 82550; 83605; 85025

== ENCOUNTER 2023-09-04 14:00 | Outpatient (CLI) | payer MEDICARE, SELFPAY ==
--- NOTE | ~2023-09-04 | US_ITS ---
EXAMINATION: US arterial ankle brachial ind DATE: 09/04/2023 15:06 INDICATION: Right lower limb pain and swelling TECHNIQUE: Segmental pressures and plethysmographic and Doppler waveforms of the brachial and lower e xtremity arteries were obtained. COMPARISON: None. FINDINGS: Right and left brachial artery pressures of 134 mm Hg and 131 mm Hg, respectively, are concordant (no rmal difference <= 30 mmHg). The right ankle-brachial index (GABRIELLE) is 1.22 (normal >= 0.9-1.0). The right great toe-brachial index (TBI) is 0.75 (normal >= 0.65). Arterial Doppler waveforms are biphasic with brisk systolic upstrokes at both right posterior tibial and dorsalis pedis arteries. The left GABRIELLE is 0.99. The left TBI is 0.55. Arterial Doppler waveforms are biphasic with brisk systol ic upstrokes at both left posterior tibial and dorsalis pedis arteries. IMPRESSION: 1. No significant arterial occlusive disease to the right lower limb with normal right GABRIELLE and TBI tr eatment 2. Mild arterial occlusive disease to the left lower limb peripheral and left GABRIELLE and mildly decrease d left TBI. Reviewed, dictated and finalized at location A. GATION SERVICE TECHNICIAN IMPRESSION: 1. No significant arterial occlusive disease to the right lower limb with oxana l right GABRIELLE and TBI treatment 2. Mild arterial occlusive disease to the left lower limb peripheral and left A BI and mildly decreased left TBI.
== END 2023-09-04 14:01 | disposition home or self-care (01) ==
PROVIDERS: PCP Family Medicine; Visit Provider Physician Assistant
DX: M79.89 Other specified soft tissue disorders (principal); I73.9 Peripheral vascular disease, unspecified
CPT/HCPCS: 93922

== ENCOUNTER 2023-09-09 07:33 | Outpatient (CLI) | payer MEDICARE, SELFPAY ==
--- NOTE | ~2023-09-09 | CT_ITS ---
EXAMINATION: CT LE RT wo/w con DATE: 09/09/2023 08:02 INDICATION: Right calf swelling and pain. TECHNIQUE: Computed tomography (CT) of the right lower limb was performed without and with 100 mL Omn ipaque 350 intravenous contrast. Automated exposure control and iterative reconstruction technique we re employed. The dose-length product was 2321.64 mGy-cm. COMPARISON: None FINDINGS: Bone alignment is normal. No fracture. The knee demonstrates mild tricompartmental osteoart hritis. There is a small knee joint effusion. There is a moderate-sized Jacques's cyst. There is mild o steoarthritis of talonavicular joint. There is no significant stenosis of popliteal artery, tibiopero kerri trunk, peroneal artery, anterior tibial artery, or posterior tibial artery. IMPRESSION: 1. Mild polyarticular osteoarthritis. 2. Small knee joint effusion. 3. Moderate-sized Jacques's cyst. Reviewed, dictated and finalized at location E. ARCH AND EVALUATION ANALYST
== END 2023-09-09 07:34 | disposition home or self-care (01) ==
PROVIDERS: PCP Family Medicine; Visit Provider Emergency Medicine
DX: M79.89 Other specified soft tissue disorders (principal); M25.461 Effusion, right knee; M71.21 Synovial cyst of popliteal space [Baker], right knee; M17.11 Unilateral primary osteoarthritis, right knee
CPT/HCPCS: 73702; Q9967

== ENCOUNTER 2023-10-02 12:13 | Outpatient (CLI) | payer MEDICARE, SELFPAY ==
--- NOTE | ~2023-10-02 | XR_ITS ---
Right Knee Technique: AP, lateral, and sunrise views were obtained. Clinical History: Pain Findings: No fracture or dislocation is seen. Osseous alignment is anatomic. Joint spaces are preserv ed without degenerative or erosive change. Soft tissues are unremarkable. No joint effusion is seen. Impression: Unremarkable right knee radiographs. Reviewed, dictated and finalized at location . RIMENTAL PHYSICIST Impression: Unremarkable right knee radiographs.
== END 2023-10-02 12:14 | disposition home or self-care (01) ==
PROVIDERS: PCP Family Medicine; Visit Provider Orthopaedic Surgery
DX: M79.604 Pain in right leg (principal)
CPT/HCPCS: 73564

== ENCOUNTER 2024-05-09 14:12 | Emergency (ER) | payer MEDICARE, SELFPAY ==
--- NOTE | ~2024-05-09 | XR_ITS ---
EXAMINATION: XR chest 2V DATE: 05/09/2024 14:50 INDICATION: Cough. TECHNIQUE: Frontal and lateral views of the chest were obtained. COMPARISON: Chest 2 views 08/12/2023, chest CT 05/10/2023 FINDINGS: A calcified right lung nodule is consistent with old granulomatous disease. No pleural effu lidia or pneumothorax. The heart size is normal. IMPRESSION: 1. No acute cardiopulmonary disease. Reviewed, dictated and finalized at location A.
--- NOTE | 2024-05-09 14:20 | ED.URI ---
HPI - URI/Sore Throat General Chief Complaint: Upper Respiratory Infection Stated Complaint: congection / cough Time Seen by Provider: 05/09/24 14:29 Source: patient, RN notes reviewed and old records reviewed Mode of arrival: ambulatory Limitations: no limitations History of Present Illness HPI Narrative: 71-year-old male to [facility] with complaint of chest congestion, productive cough with yellow sputum shallow breathing shortness of breath with exertion and fever for 3-4 days. Patient reports symptoms are worse at night when lying down. Patient denies allergies or pertinent medical history. Patient able to tolerate fluids by mouth. Patient resting comfortably in exam room no acute distress. Respirations even and nonlabored. Related Data Home Medications Medication Instructions Recorded Confirmed aspirin 81 mg tablet,delayed 81 mg PO DAILY 08/30/19 05/09/24 release (Aspir-) atorvastatin 40 mg tablet 40 mg PO DAILY 08/30/19 05/09/24 clopidogrel 75 mg tablet 75 mg PO DAILY 08/30/19 05/09/24 lisinopril 40 mg tablet 40 mg PO DAILY 12/24/22 05/09/24 metoprolol succinate 50 mg 50 mg PO DAILY 12/24/22 05/09/24 tablet,extended release 24 hr isosorbide mononitrate 30 mg 30 mg PO DAILY 05/10/23 05/09/24 tablet,extended release 24 hr Allergies Allergy/AdvReac Type Severity Reaction Status Date / Time No Known Allergies Allergy Verified 05/09/24 14:39 Review of Systems Review of Systems: All systems reviewed & are unremarkable except as noted in HPI and below Constitutional: Constitutional: Reports as per HPI and Reports fever(s) Eyes: Eyes: Reports no additional eye complaints ENT: Reports as per HPI and Reports nasal congestion Cardiovascular: Cardiovascular: Reports no additional cardiovascular complaints, Denies chest pain and Denies dyspnea Respiratory: Respiratory: Reports no additional respiratory complaints, Reports change in phlegm color ( Yellow), Reports cough, Denies dyspnea and Reports dyspnea on exertion Musculoskeletal: Musculoskeletal: Reports no additional musculoskeletal complaints Neurologic: Reports system reviewed and no additional complaints, except as documented Psychiatric: Psychiatric: Reports no additional psychiatric complaints PMFSH Past Medical History Medical History BMI 27.0-27.9,adult Heel pain History of stroke Hypertension Primary osteoarthritis of right knee Right rotator cuff tear Right shoulder pain 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 ballooned 1.28.20 Surgical History Surgical History History of appendectomy History of shoulder surgery (~2000) R RTC repair 2000 [place] Family History Family History Mother Patient's mother is , Onset Age: 81 Father Patient's father is , Onset Age: 80 Family history of emphysema Sibling Carcinoma of colon, Onset Age: 67 Family history of gastrointestinal disorder Family history of cardiovascular disease Family history of malignant neoplasm of breast Family history of lymphoma Family history of malignant neoplasm of thyroid Family history of malignant neoplasm of urinary bladder Social History Social History Smoking packs per day: 0.5 Smoking cigarettes per day: 10.0 Years smoked: 54 Smoking pack-years: 27.00 Smoking status: Former smoker Tobacco type: cigarettes Smoking end date: 08/03/11 Alcohol intake: current Alcohol use details: Occasional Substance use: never Substance use type: does not use Lack of Transportation: No Lack of Food: Never True Current Housing: I Have Housing Concerned About Future Housing: No Difficulty Paying Gas/Electric Bills: No Difficulty Paying fo
[2024-05-09 14:23] VITALS: BP 121/50; PULSE 70; RESP 24; TEMP 36.7; O2SAT 97
[2024-05-09 15:08] LABS: EDCOVIDSCREEN Positive (Negative); EDINFLUASCREEN Negative (Negative); EDINFLUBSCREEN Negative (Negative)
== END 2024-05-09 15:26 | disposition home or self-care (01) ==
PROVIDERS: Emergency Provider Nurse Practitioner Family; PCP Family Medicine
DX: U07.1 COVID-19 (principal); Z87.891 Personal history of nicotine dependence; I10 Essential (primary) hypertension; M17.11 Unilateral primary osteoarthritis, right knee; I25.10 Atherosclerotic heart disease of native coronary artery without angina pectoris; Z95.5 Presence of coronary angioplasty implant and graft; Z86.73 Personal history of transient ischemic attack (TIA), and cerebral infarction without residual deficits
CPT/HCPCS: 71046; 87426; 87804; 99213; G0463

== ENCOUNTER 2024-10-16 14:13 | Inpatient (IN) | payer MEDICARE, SELFPAY ==
[2024-10-16] VITALS (20 sets, daily range): BP systolic 135–207; BP diastolic 81–115; PULSE 62–76; RESP 12–26; TEMP 36.6; O2SAT 81–100; BMI 25.4
--- NOTE | ~2024-10-16 | CT_ITS ---
EXAMINATION: CTA brain carotid DATE: 10/16/2024 15:34 INDICATION: STROKE-LIKE SYMPTOMS TECHNIQUE: Computed tomographic angiography (CTA) of the head was performed without and with 100 mL O mnipaque-350 intravenous contrast. CTA of the neck was performed with intravenous contrast. Automated exposure control and iterative reconstruction technique were employed. The dose-length product was 1 723.18 mGy-cm. Maximum intensity projection and volume rendered 3D-reconstructions were created by th e technologist on a separate workstation. COMPARISON: CT brain 05/10/2023. FINDINGS: CT BRAIN: No acute large vessel infarct, intracranial hemorrhage, mass, or hydrocephalus. Moderate atrophy and chronic white matter change. Atherosclerotic intracranial calcification. Bilateral basal ganglia calc ification. Scattered mucosal thickening in the paranasal sinuses. Bilateral maxillary air-fluid leve ls and aerated secretions. CTA HEAD: No large vessel occlusion, aneurysm, high flow vascular malformation, nidus or extravasation. CTA NECK: Aortic arch and proximal great vessels: Normal arch anatomy. Atherosclerotic calcifications at the vi sualized aortic arch and proximal great vessels. Right common carotid, carotid bifurcation, and internal carotid artery: Mild calcified atheroscleroti c plaque at the carotid bifurcation.There is 0% stenosis of the proximal right internal carotid arter y relative to normal distal artery lumen diameter (NASCET criteria). Left common carotid, carotid bifurcation, and internal carotid artery: Mild calcified atherosclerotic plaque at the carotid bifurcation.There is 0% stenosis of the proximal left internal carotid artery relative to normal distal artery lumen diameter (NASCET criteria). Vertebral arteries: Calcified and noncalcified plaque causing severe stenosis at the origin of the le ft vertebral artery. Left vertebral artery is dominant. Other findings: Degenerative change in the cervical spine. Senescent change and likely mild interstit ial edema in the lungs. Subcentimeter hypodensity in the right thyroid which requires no additional e valuation. IMPRESSION: No acute intracranial process. CT findings may represent acute bilateral maxillary sinusitis in the appropriate clinical context. No large vessel intracranial occlusion, high-grade intracranial stenosis, or aneurysm. No carotid or vertebral artery occlusion or dissection. No severe carotid stenosis. Severe short segm ent stenosis at the origin of the left vertebral artery. Likely mild interstitial edema. Reviewed, dictated and finalized at location K. IMPRESSION: No acute intracranial process. CT findings may represent acute bilateral maxillary sinusitis in the appropriat e clinical context. No large vessel intracranial occlusion, high-grade intracranial stenosis, or an eurysm. No carotid or vertebral artery occlusion or dissection. No severe carotid steno sis. Severe short segment stenosis at the origin of the left vertebral artery. Likely mild interstitial edema.
--- NOTE | ~2024-10-16 | XR_ITS ---
EXAMINATION: XR chest 1V portable Exam Date/Time: 10/16/2024 14:40 CDT HISTORY: stroke like symptoms Comparison: 05/09/2024. RESULT: Lines, tubes, and devices: None. Lungs and pleura: Clear. Granulomatous calcification. Cardiomediastinal silhouette: Stable. Other: No acute osseous or upper abdominal finding. IMPRESSION: No acute cardiopulmonary process. Reviewed, dictated and finalized at location K.
--- NOTE | ~2024-10-16 | MR_ITS ---
EXAMINATION: MR brain/brain stem wo/w con DATE: 10/17/2024 18:03 INDICATION: Vertebral artery stenosis TECHNIQUE: Magnetic resonance imaging (MRI) of the brain and brainstem was performed without and with 15 mL of ProHance intravenous contrast. Sequences included sagittal and axial T1-weighted SE, axial diffusion-weighted FS SE, axial 3D SWAN, axial T2-weighted FLAIR, and axial T2-weighted FSE. Postcont rast axial and coronal T1-weighted SE was obtained. Apparent diffusion coefficient (ADC) maps were cr eated. COMPARISON: None. FINDINGS: 11 x 10 x 7 mm enhancing extra-axial dural based mass with enhancing dural tail at the left posterior fossa most consistent with a meningioma. There are no areas of restricted diffusion to suggest acute infarction. Single small focus of susceptibility artifact in the left parietal lobe white matter con sistent with blood products related to chronic microhemorrhage such as the previously seen in the set ting of hypertension. There are scattered areas of nonspecific increased T2-weighted signal intensity in the cerebral white matter, predominantly involving the deep and periventricular white matter. The re are no intraparenchymal signal abnormalities seen on the other pulse sequences. The ventricles are symmetric and normal in size. There are no abnormal extra-axial fluid collections. Flow voids are se en in the cerebral arteries on the T2-weighted sequences consistent with their expected patency. Ther e is bubbly mucus layering dependently in the bilateral maxillary sinuses and mild mucosal thickening bilateral ethmoid sinuses. Visualized orbits and soft tissues are unremarkable. There are no other a reas of abnormal enhancement on the post contrast images. IMPRESSION: 1. Normal aging brain with 11 x 10 x 7 mm enhancing extra-axial dural based mass in the posterior fos sa most consistent with a meningioma. No acute intracranial process. 2. Single tiny focus of susceptibility artifact in the left parietal lobe consistent with sequela of chronic microhemorrhage such as typically seen with hypertension. 3. Dependently layering fluid in the bilateral maxillary sinuses consistent with acute sinusitis. Reviewed, dictated and finalized at location A. IMPRESSION: 1. Normal aging brain with 11 x 10 x 7 mm enhancing extra-axial dural based mas s in the posterior fossa most consistent with a meningioma. No acute intracrani al process. 2. Single tiny focus of susceptibility artifact in the left parietal lobe consi stent with sequela of chronic microhemorrhage such as typically seen with hyper tension. 3. Dependently layering fluid in the bilateral maxillary sinuses consistent wit h acute sinusitis.
--- OUTSIDE RECORDS SUMMARY | 2024-10-16 14:14 | XMS_ITS | Clinical Summary ---
Author Organization [facility] [place] [address] Address [address] [place] [address] Care Team Providers Care Digital Sales Executive Name Role Phone Jyoti Burgess MD Primary Care Provider + Allergies No known active allergies Medications nitroglycerin (NITROSTAT) 0.4 mg SL tablet 10/14/2017 Active aspirin 81 mg chewable tablet Take 1 tablet (81 mg total) by mouth daily 90 tablet 3 02/16/2019 Active lisinopriL (PRINIVIL,ZESTRI L) 40 mg tablet TAKE 1 TABLET(40 MG) BY MOUTH DAILY 90 tablet 3 01/06/2024 Active metoprolol XL (TOPROL-XL) 50 mg extended release tabletIndication s:Chest tightness TAKE 1 TABLET(50 MG) BY MOUTH DAILY 90 tablet 3 08/15/2024 Active atorvastatin (LIPITOR) 40 mg tablet TAKE 1 TABLET(40 MG) BY MOUTH DAILY 90 tablet 1 09/05/2024 Active Active Problems Problem Noted Date Diagnosed Date History of coronary artery stent placement 01/14 STEMI (ST elevation myocardial infarction) Surgical History Surgery Date Site/Laterality Comments SHOULDER SURGERY APPENDECTOMY Medical History Medical History Date Comments STEMI (ST elevation myocardial infarction) (HCC) Family History Medical History Relation Name Comments Cancer Brother Crohn's disease Brother Lymphoma Brother Emphysema Father Cancer Sister Relation Name Status Comments Brother Father Sister Social History Tobacco Use Types Packs/Day Years Used Date Smoking Tobacco: Former Cigarettes Q uit: 07/19/2013 Smokeless Tobacco: Never Tobacco Cessation:Counseling Given: Not Answered Alcohol Use Standard Drinks/Week Comments Yes 0 (1 standard drink = 0.6 oz pur e alcohol) Sex and Gender Information Value Date Recorded Sex Assigned at Not on file Legal Sex Male 1:55 AM CLINICAL MEDICAL ASSISTANT Gender Identity Not on file Sexual Orientation Not on file Obstetrics History Last Filed Vital Signs Vital Sign Reading Time Taken Comments Blood Pressure 148/82 06/16/2024 8:08 AM CLINICAL MEDICAL ASSISTANT Pulse 61 06/16/2024 8:08 AM CLINICAL MEDICAL ASSISTANT Temperature - - Respiratory Rate 15 05/08/2020 3:03 PM CDT Oxygen Saturation 95% 06/16/2024 8:08 AM CLINICAL MEDICAL ASSISTANT Inhaled Oxygen Concentration - - Weight 77.4 kg (170 lb 9.6 oz) 06/16/2024 8:08 A M CLINICAL MEDICAL ASSISTANT Height 170.2 cm (5' 7 ) 06/16/2024 8:08 AM CLINICAL MEDICAL ASSISTANT Body Mass Index 26.72 06/16/2024 8:08 AM CLINICAL MEDICAL ASSISTANT Plan of Treatment Health Maintenance Due Date Last Done Comments Depression Screening 1945 Hepatitis C Screening 1945 DTaP/Tdap/Td Vaccine (1 - Tdap) 1957 Hepatitis B Screening 01/05/1964 Pneumococcal vaccine 65+ (1 of 2 - PCV) 1965 Zoster Vaccine (1 of 2) 01/05/1996 Abdominal Aortic Aneurysm (AAA) Screen 2011 Well Visit 65+ 2011 Fall Risk Assessment 05/08/2021 05/08/2020 Influenza Vaccine (#1) 2024 04/29/2018 Insurance T MEDICARE [facility] MEDICARE Address: [facility] [id number] [place] [phone] [employer] MED[employer]ARE Care Teams Digital Sales Executive Relationship Specialty Start Date End Date Jyoti Burgess MD PCP - General Family Medicine 04/23/17
--- OUTSIDE RECORDS SUMMARY | 2024-10-16 14:14 | XMS_ITS | Referral Summary ---
Author Organization [facility] [place] [address] Address [address] [place] [address] Care Team Providers Care Model Maker Apprentice Name Role Phone Jyoti Burgess MD Primary [...] placement 01/14 STEMI (ST elevation myocardial infarction) Social History Tobacco Use Types Packs/Day Years Used Date Smoking Tobacco: Former Cigarettes Q uit: 07/19/2013 Smokeless Tobacco: Never Tobacco Cessation:Counseling Given: Not Answered Alcohol Use Standard Drinks/Week Comments Yes 0 (1 standard drink = 0.6 oz pur e alcohol) Sex and Gender Information Value Date Recorded Sex Assigned at Not on file Legal Sex Male 1:55 AM TOBACCO STEMMER Gender Identity Not on file Sexual Orientation Not on file Last Filed Vital Signs Vital Sign Reading Time Taken Comments Blood Pressure 148/82 06/16/2024 8:08 AM TOBACCO STEMMER Pulse 61 06/16/2024 8:08 AM TOBACCO STEMMER Temperature - - Respiratory Rate 15 05/08/2020 3:03 PM CDT Oxygen Saturation 95% 06/16/2024 8:08 AM TOBACCO STEMMER Inhaled Oxygen Concentration - - Weight 77.4 kg (170 lb 9.6 oz) 06/16/2024 8:08 A M TOBACCO STEMMER Height 170.2 cm (5' 7 ) 06/16/2024 8:08 AM TOBACCO STEMMER Body Mass Index 26.72 06/16/2024 8:08 AM TOBACCO STEMMER Plan of Treatment Not on file Insurance [facility] [place]IC[place] [address] [place] [address] MEDICARE Care Teams Model Maker Apprentice Relationship Specialty Start Date End Date Jyoti Burgess MD PCP - General Family Medicine 04/23/17
--- NOTE | 2024-10-16 14:19 | ED.GENADULT ---
HPI - General Adult General Chief complaint: Neuro Symptoms/Deficit Stated complaint: CVA ? Time Seen by Provider: 10/16/24 14:18 Source: patient and family Mode of arrival: ambulatory Limitations: no limitations History of Present Illness HPI narrative: 79 YEARS OLD WHITE MALE CAME TO THE ED WITH HIS AND DAUGHTER BECAUSE FEELING DIZZY, TROUBLE FOCUSING, TROUBLE TO COMPARE HAND WHAT HE SEE, LIKE HEAD COLD, STUFFED UP, STARTED THURSDAY WHICH IS 3 DAYS AGO. HISTORY OF HYPERTENSION, TIAS, CORONARY STENTS, DRINKS ALCOHOL OCCASIONALLY, DOES NOT SMOKE CIGARETTES, DENIES ANY FOCAL WEAKNESS OR NUMBNESS OR TINGLING OR DEPRESSION OR ANXIETY. Related Data Home Medications ?Medication ?Instructions ?Recorded ?Confirmed ?Last Taken ?Type aspirin 81 mg tablet,delayed 81 mg PO DAILY 08/30/19 10/16/24 Unknown History release (Aspir-) atorvastatin 40 mg tablet 40 mg PO DAILY 08/30/19 10/16/24 Unknown History lisinopril 40 mg tablet 40 mg PO DAILY 12/24/22 10/16/24 Unknown History metoprolol succinate 50 mg 50 mg PO DAILY 12/24/22 10/16/24 Unknown History tablet,extended release 24 hr amoxicillin 875 mg-potassium 1 tablet PO BID 10/16/24 10/16/24 Unknown History clavulanate 125 mg tablet benzonatate 200 mg capsule 200 mg PO TID 10/16/24 10/16/24 Unknown History Allergies Allergy/AdvReac Type Severity Reaction Status Date / Time No Known Allergies Allergy Verified 10/16/24 14:23 Review of Systems Review of Systems: All systems reviewed & are unremarkable except as noted in HPI and below PMFSH Past Medical History Medical History Screening for deficiency anemia COVID-19 Primary osteoarthritis of right knee Synovial cyst of popliteal space [Jacques], right knee Right leg pain Swelling of right lower extremity Myopathy associated with sepsis Altered mental status Sepsis Bacteremia Elevated troponin Fever Abnormal CT scan, gastrointestinal tract Hypertension Hyperthermia SIRS (systemic inflammatory response syndrome) Closed head injury with brief loss of consciousness Former smoker quit 2011 Plantar fasciitis Heel pain De Quervain's tenosynovitis, left Right rotator cuff tear Right shoulder pain BMI 27.0-27.9,adult History of stroke Stable angina pectoris 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 ballooned 08.30.19 Surgical History Surgical History History of appendectomy History of shoulder surgery (~2000) R RTC repair 2000 [place] Family History Family History Mother Patient's mother is , Onset Age: 81 Father Patient's father is , Onset Age: 80 Family history of emphysema Sibling Carcinoma of colon, Onset Age: 67 Family history of gastrointestinal disorder Family history of cardiovascular disease Family history of malignant neoplasm of breast Family history of lymphoma Family history of malignant neoplasm of thyroid Family history of malignant neoplasm of urinary bladder Social History Social History Smoking packs per day: 0.5 Smoking cigarettes per day: 10.0 Years smoked: 54 Smoking pack-years: 27.00 Smoking status: Former smoker Tobacco type: cigarettes Smoking end date: 08/03/11 Alcohol intake: current Alcohol use details: Occasional Substance use: never Substance use type: does not use Lack of Transportation: No Lack of Food: Never True Current Housing: I Have Housing Concerned About Future Housing: No Difficulty Paying Gas/Electric Bills: No Difficulty Paying for Meds: No Currently Unemployed: No Education: High School Diploma/GED Difficulty w/ Childcare or Family Care: No Living arrangements: with family Additional living arrangements comments: Spouse- Jacqueline Wilks Occupation/Education: occupation Additional occupation/education comments: Self-Employed Spiritual care concerns: No Exam Narrative: GENERAL APPEARANCE: WELL-DEVELOPED, WELL-NOURISHED, LOOKS DEPRESSED AND TEARFUL SKIN: NORMAL COLOR HEAD: NORMOCEPHALIC, NONTRAUMATIC EYES: CLEAR CONJUNCTIVA ENT: OROPHARYNX NORMAL, EARS NORMAL, NOSE NORMAL NECK: SUPPLE, NONTENDER CHEST AND RESPIRATORY: AIRWAY PATENT, NO RESPIRATORY DISTRESS, NO ACCESSORY MUSCLE USE HEART: REGULAR RATE/RHYTHM ABDOMEN: SOFT, NONTENDER, NO ORGANOMEGALY, QUIET BOWEL SOUNDS VASCULAR: NORMAL PERIPHERAL PULSES, NORMAL CAPILLARY REFILL. MUSCULOSKELETAL: NORMAL RANGE OF MOTION, NONTENDER BACK NEUROLOGIC: ALERT AND ORIENTED ?3, PUBLICATIONS EDITOR IS NORMAL TESTED, NO GROSS MOTOR DEFICIT Course Consultations Consultation #1: DR CALI ADMIT TO HOSPITALIST Date: 10/16/24 Consultation #2: DR PETROSSIAN, UROLOGIST, THE IMPLANT IS INFLATABLE AND CALLED AMS 700 WHICH IS COMPATIBLE WITH MRI Date: 10/16/24 Time: 18:33 Vital Signs Vital signs: Vital Signs Temperature 36.6 C 10/16/24 14:17 Pulse Rate 66 10/16/24 14:17 Respiratory Rate 17 10/16/24 14:17 Blood Pressure 207/92 H 10/16/24 14:17 Pulse Oximetry 100 10/16/24 14:17 Oxygen Delivery Room Air 10/16/24 14:17 Temperature 36.6 C 10/16/24 14:17 Pulse Rate 68 10/16/24 17:17 Respiratory Rate 18 10/16/24 17:17 Blood Pressure 175/115 H 10/16/24 17:17 Pulse Oximetry 100 10/16/24 17:17 Oxygen Delivery Room Air 10/16/24 14:17 Medical Decision Making MDM Narrative Medical decision making narrative: PATIENT CAME TO THE ED COMPLAINING OF HEAD COLD LIKE SYMPTOMS, STUFFED UP, TROUBLE FOCUSING BY HIS EYES, TROUBLE TO COMPARE HAND WHAT HE SEE BY HIS EYES IN THE LAST 3 DAYS. VITAL SIGNS SHOWING BLOOD PRESSURE 207/92 OTHERWISE WITHIN NORMAL LIMIT PHYSICAL EXAMINATION SHOWING PATIENT AWAKE, ALERT ORIENTED X4, STROKE SCALE IS 0, PATIENT IS TEARFUL WITH INTERMITTENT COUGHING DIFFERENTIAL DIAGNOSIS INCLUDE UPPER RESPIRATORY VIRAL INFECTION, SINUSITIS, BRONCHITIS, PNEUMONIA, ANXIETY LIKE SYMPTOMS, SYMPTOMS SECONDARY TO UNCONTROLLED HYPERTENSION, LESS LIKELY ACUTE CVA BLOOD WORKUP TODAY INCLUDES CBC, CMP, TROPONIN, TSH SHOWED WBC 11.8, OTHERWISE WITHIN NORMAL LIMIT CTA HEAD AND NECK SHOWED ACUTE BILATERAL MAXILLARY SINUSITIS, SEVERE SHOWED SHORT SEGMENT STENOSIS AT THE ORIGIN OF THE LEFT VERTEBRAL ARTERY. I BELIEVE ACUTE SINUSITIS IS UNDERLYING CAUSE OF PATIENT'S SYMPTOMS, THE VERTEBRAL STENOSIS HIGH LIKELY IS CHRONIC. PATIENT RECEIVED ASPIRIN, ADMIT TO HOSPITALIST DISCUSSED WITH DR. CALI Differential Diagnosis Differential Diagnosis: ABOVE Vital Signs Vital Signs: Vital Signs Temperature 36.6 C 10/16/24 14:17 Pulse Rate 66 10/16/24 14:17 Respiratory Rate 17 10/16/24 14:17 Blood Pressure 207/92 H 10/16/24 14:17 Pulse Oximetry 100 10/16/24 14:17 Oxygen Delivery Room Air 10/16/24 14:17 Temperature 36.6 C 10/16/24 14:17 Pulse Rate 68 10/16/24 17:17 Respiratory Rate 18 10/16/24 17:17 Blood Pressure 175/115 H 10/16/24 17:17 Pulse Oximetry 100 10/16/24 17:17 Oxygen Delivery Room Air 10/16/24 14:17 Lab Data 10/16/24 14:42 10/16/24 14:42 Labs: Lab Results 10/16/24 10/16/24 Range/Units 14:22 14:42 WBC 11.8 H (4.5-10.0) K/mm3 RBC 5.79 (4.6-6.20) M/mm3 Hgb 17.2 D (14.0-18.0) g/dL Hct 51.9 (42.0-52.0) % MCV 89.6 (80-100) fl MCH 29.7 (26-34) pg MCHC 33.1 (32-36) g/dl RDW 13.6 (11.5-14.5) % Plt Count 231 (150-375) k/mm3 MPV 11.4 H (7.4-10.4) fl Immature Gran % (Auto) 1.3 H (0-0.5) % Neut % (Auto) 45.3 L (45.5-73.1) % Lymph % (Auto) 42.9 (18.3-44.2) % [facility] % (Auto) 6.8 (2.6-8.5) % Eos % (Auto) 2.9 (0-4.4) % Baso % (Auto) 0.8 (0.2-1.2) % Lymph # (Auto) 5.06 H (0.9-3.2) K/mm3 [facility] # (Auto) 0.8 H (0.1-0.6) K/mm3 Eos # (Auto) 0.3 (0-0.3) K/mm3 Baso # (Auto) 0.1 (0.0-0.1) K/mm3 Abs Immat Gran (auto) 0.15 H (0.00-0.031) K/mm3 Absolute Neuts (auto) 5.4 (1.3-6.7) K/mm3 Absolute Nucleated RBC 0.000 (0.0-0.012) K/mm3 Nucleated RBC % 0.0 (0.0-0.2) % PT 12.9 (11.1-14.7) Seconds INR 0.9 APTT 25.5 (22.3-36.8) Seconds Sodium 138 (137-145) mmol/L Potassium 4.1 (3.4-5.0) mmol/L Chloride 100 (98-107) mmol/L Carbon Dioxide 29 (22-30) mmol/L Anion Gap 9 (4-12) mmol/L BUN 18 (9-20) mg/dL Creatinine 0.98 (0.7-1.3) mg/dL Estim Creat Clear Calc 51 ml/min Estimated GFR > 60 (59 - ) Glucose 131 H (65-110) mg/dL POC Capillary Glucose 131 H (65-105) mg/dl Calcium 8.8 (8.4-10.2) mg/dL Total Bilirubin 1.2 (0.2-1.3) mg/dL AST 25 (17-59) U/L ALT 28 (6-50) U/L Alkaline Phosphatase 75 (38-126) U/L Troponin I < 0.012 (0.000-0.034) ng/mL Total Protein 7.0 (6.3-8.2) g/dL Albumin 4.0 (3.5-5.1) g/dL Imaging Data Radiologist's impression: Impressions Chest X-Ray 10/16/24 15:30 IMPRESSION: No acute cardiopulmonary process. Head/Neck CTA 10/16/24 15:49 IMPRESSION: No acute intracranial process. CT findings may represent acute bilateral maxillary sinusitis in the appropriate clinical context. No large vessel intracranial occlusion, high-grade intracranial stenosis, or aneurysm. No carotid or vertebral artery occlusion or dissection. No severe carotid stenosis. Severe short segment stenosis at the origin of the left vertebral artery. Likely mild interstitial edema. Discharge Plan Discharge Clinical Impression: Sinusitis, Vertebral artery stenosis Patient Disposition: Still a Patient Condition: Stable Patient Language: Vietnamese Prescriptions: No Action metoprolol succinate 50 mg tablet extended release 24 hr 50 mg PO DAILY lisinopril 40 mg tablet 40 mg PO DAILY atorvastatin 40 mg Tablet 40 mg PO DAILY aspirin [Aspir-81] 81 mg Tablet,Delayed Release (Dr/Ec) 81 mg PO DAILY nitroglycerin [Nitrostat] 0.4 mg Tablet, Sublingual 0.4 mg sublingual DIRECTED PRN (Reason: Chest Pain) Qty: 25 3RF Rx Instructions: One tablet sublingual Q 5 minutes x3 doses p.r.n. chest pain If no relief call 911 Follow-up/Referrals: Jyoti Burgess MD [Primary Care Provider] - Quality Stroke Date of last known normal: 10/16/24 Stroke Scale Stroke Scale 1: Stroke scale date:: 10/16/24 1a Level of consciousness: alert-0 1b Level of consciousness questions: answers both correctly-0 1c Level of consciousness commands: obeys both correctly-0 2 Best gaze: normal-0 3 Visual: no visual loss-0 4 Facial palsy: normal-0 5a Motor: left arm: no drift-0 5b Motor: right arm: no drift-0 6a Motor: left leg: no drift-0 6b Motor: right leg: no drift-0 7 Limb ataxia: absent-0 8 Sensory: normal-0 9 Best language: no aphasia-0 10 Dysarthria: normal-0 11 Extinction and inattention: no abnormality-0 Level:: 0
[2024-10-16 14:26] LABS: Glucose Point of Care 131 mg/dl (65-105)
--- NOTE | 2024-10-16 14:32 | ECG_ITS ---
Test Date: 2024-10-16 14:21:57 Measurements Intervals Wideman Rate: 65 P: 35 NM: 152 QRS: 0 QRSD: 112 T: 38 QT: 385 QTc: 403 Interpretive Statements SINUS RHYTHM MODERATE INTRAVENTRICULAR CONDUCTION DELAY [110+ ms QRS DURATION] MINIMAL ST DEPRESSION [0.025+ mV ST DEPRESSION] No previous ECG available for comparison Electronically Signed On 10-17-2024 15:07:10 CDT by Pelon Elizondo M.D.
--- OUTSIDE RECORDS SUMMARY | 2024-10-16 14:34 | XMS_ITS | Clinical Summary ---
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..] Vaccine (#1) 2024 04/29/2018 Insurance T MEDICARE [employer] MEDICARE Care Teams Records Management Assistant Relationship Specialty Start Date End Date Jyoti Burgess MD PCP - General Family Medicine 04/23/17
[2024-10-16 14:51] LABS: Basophils Absolute Auto 0.1 K/mm3 (0.0-0.1); Basophils Percent Auto 0.8 % (0.2-1.2); Eosinophils Absolute Auto 0.3 K/mm3 (0-0.3); Eosinophils Percent Auto 2.9 % (0-4.4); Hematocrit 51.9 % (42.0-52.0); Hemoglobin 17.2 g/dL (14.0-18.0); Immature Granulocyte Absolute 0.15 K/mm3 (0.00-0.031); Immature Granulocyte Percent A 1.3 % (0-0.5); Lymphocytes Absolute Auto 5.06 K/mm3 (0.9-3.2); Lymphocytes Percent Auto 42.9 % (18.3-44.2); Mean Corpuscular HGB Conc 33.1 g/dl (32-36); Mean Corpuscular Hemoglobin 29.7 pg (26-34); Mean Corpuscular Volume 89.6 fl (80-100); Mean Platelet Volume 11.4 fl (7.4-10.4); Monocytes Absolute Auto 0.8 K/mm3 (0.1-0.6); Monocytes Percent Auto 6.8 % (2.6-8.5); Neutrophils Absolute Auto 5.4 K/mm3 (1.3-6.7); Neutrophils Percent Auto 45.3 % (45.5-73.1); Platelet Count Result 231 k/mm3 (150-375); Red Blood Count 5.79 M/mm3 (4.6-6.20); Red Cell Distribution Width 13.6 % (11.5-14.5); White Blood Count 11.8 K/mm3 (4.5-10.0)
[2024-10-16 14:57] LABS: Alanine Aminotransferase 28 U/L (6-50); Alkaline Phosphatase 75 U/L (38-126); Anion Gap 9 mmol/L (4-12); Aspartate Amino Transferase 25 U/L (17-59); Bilirubin,Total 1.2 mg/dL (0.2-1.3); Blood Urea Nitrogen 18 mg/dL (9-20); Calcium 8.8 mg/dL (8.4-10.2); Carbon Dioxide 29 mmol/L (22-30); Chloride 100 mmol/L (98-107); Estimated CRCL calculation 51 ml/min; Estimated Glomerular Filt Rate > 60; Glucose 131 mg/dL (65-110); Potassium 4.1 mmol/L (3.4-5.0); Sodium 138 mmol/L (137-145)
[2024-10-16 15:00] LABS: INR 0.9; Partial Thromboplastin Time 25.5 Seconds (22.3-36.8); Prothrombin Time 12.9 Seconds (11.1-14.7)
[2024-10-16 15:09] LABS: Troponin I < 0.012 ng/mL (0.000-0.034)
[2024-10-16] MEDS: ASPIRIN 81 MG CHEWABLE TABLET 324 MG PO (16:57)
--- NOTE | 2024-10-16 17:07 | P.HP_ITS ---
H&P: HPI History of Present Illness Date/Time: 10/16/24 17:07 Chief Complaint: Dizziness, Vision Complaint Narrative: 79 y/o M presents here with dizziness and vision change with PMH of hypertension, coronary artery disease with stent placement, HLD, CVA, and a penile implant [facility] Past Medical History Medical History Screening for deficiency anemia COVID-19 Primary osteoarthritis of right knee Synovial cyst of popliteal space [Jacques], right knee Right leg pain Swelling of right lower extremity Myopathy associated with sepsis Altered mental status Sepsis Bacteremia Elevated troponin Fever Abnormal CT scan, gastrointestinal tract Hypertension Hyperthermia SIRS (systemic inflammatory response syndrome) Closed head injury with brief loss of consciousness Former smoker quit 2011 Plantar fasciitis Heel pain De Quervain's tenosynovitis, left Right rotator cuff tear Right shoulder pain BMI 27.0-27.9,adult History of stroke Stable angina pectoris 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 ballooned 1.28.20 Surgical History Surgical History History of appendectomy History of shoulder surgery (~2000) R RTC repair 2000 [place] Family History Family History Mother Patient's mother is , Onset Age: 81 Father Patient's father is , Onset Age: 80 Family history of emphysema Sibling Carcinoma of colon, Onset Age: 67 Family history of gastrointestinal disorder Family history of cardiovascular disease Family history of malignant neoplasm of breast Family history of lymphoma Family history of malignant neoplasm of thyroid Family history of malignant neoplasm of urinary bladder Social History Social History Smoking packs per day: 0.5 Smoking cigarettes per day: 10.0 Years smoked: 54 Smoking pack-years: 27.00 Smoking status: Former smoker Tobacco type: cigarettes Smoking end date: 08/03/11 Alcohol intake: current Alcohol use details: Occasional Substance use: never Substance use type: does not use Lack of Transportation: No Lack of Food: Never True Current Housing: I Have Housing Concerned About Future Housing: No Difficulty Paying Gas/Electric Bills: No Difficulty Paying for Meds: No Currently Unemployed: No Education: High School Diploma/GED Difficulty w/ Childcare or Family Care: No Living arrangements: with family Additional living arrangements comments: Spouse- Jacqueline Wilks Occupation/Education: occupation Additional occupation/education comments: Self-Employed Spiritual care concerns: No Meds Home Medications and Allergies Home Medications ?Medication ?Instructions ?Recorded ?Confirmed ?Type aspirin 81 mg tablet,delayed 81 mg PO DAILY 08/30/19 10/16/24 History release (Aspir-) atorvastatin 40 mg tablet 40 mg PO DAILY 08/30/19 10/16/24 History nitroglycerin 0.4 mg sublingual 0.4 mg sublingual DIRECTED PRN 09/01/19 10/16/24 Rx tablet (Nitrostat) Chest Pain #25 tabs lisinopril 40 mg tablet 40 mg PO DAILY 12/24/22 10/16/24 History metoprolol succinate 50 mg 50 mg PO DAILY 12/24/22 10/16/24 History tablet,extended release 24 hr Allergies Allergy/AdvReac Type Severity Reaction Status Date / Time No Known Allergies Allergy Verified 10/16/24 14:23 Vital Signs Vital Signs - 24 hr 10/16/24 14:17 10/16/24 14:17 10/16/24 14:28 Temperature 97.9 F Pulse Rate 66 66 72 Respiratory Rate 17 17 Blood Pressure 207/92 H 207/92 H Pulse Oximetry 100 95 Oxygen Delivery Room Air 10/16/24 14:41 10/16/24 14:46 10/16/24 15:04 Temperature Pulse Rate 68 67 63 Respiratory Rate 18 15 20 Blood Pressure Pulse Oximetry 100 81 L 99 Oxygen Delivery 10/16/24 15:15 10/16/24 15:16 10/16/24 15:34 Temperature Pulse Rate 75 76 72 Respiratory Rate 19 24 H Blood Pressure 186/99 H Pulse Oximetry 100 Oxygen Delivery 10/16/24 15:46 10/16/24 16:01 10/16/24 16:15 Temperature Pulse Rate 62 71 63 Respiratory Rate 12 18 14 Blood Pressure Pulse Oximetry 100 100 97 Oxygen Delivery 10/16/24 16:30 10/16/24 16:48 Temperature Pulse Rate 73 66 Respiratory Rate 26 H 22 H Blood Pressure Pulse Oximetry 100 Oxygen Delivery H&P: Results Labs Labs: Short CBC 10/16/24 Range/Units 14:42 WBC 11.8 H (4.5-10.0) K/mm3 Hgb 17.2 D (14.0-18.0) g/dL Hct 51.9 (42.0-52.0) % Plt Count 231 (150-375) k/mm3 BMP 10/16/24 14:42 Sodium 138 Potassium 4.1 Chloride 100 Carbon Dioxide 29 BUN 18 Creatinine 0.98 Glucose 131 H Calcium 8.8 Cardiac Enzymes 10/16/24 Range/Units 14:42 Troponin I < 0.012 (0.000-0.034) ng/mL Liver Function 10/16/24 Range/Units 14:42 Total Bilirubin 1.2 (0.2-1.3) mg/dL AST 25 (17-59) U/L ALT 28 (6-50) U/L Alkaline Phosphatase 75 (38-126) U/L Albumin 4.0 (3.5-5.1) g/dL
[2024-10-16] MEDS: AMOXICILLIN/CLAVULANATE K 875-125 MG TAB 1 TABLET PO ×2 (17:16→20:31)
--- NOTE | 2024-10-16 19:06 | P.HP_ITS ---
H&P: HPI History of Present Illness Date/Time: 10/16/24 19:06 Chief Complaint: Dizziness, Vision Problem Narrative: 79 y/o M presents here with dizziness and vision problem with PMH of hypertension, former smoker, stroke, coronary artery disease with stent placement, and hyperlipidemia. The patient presents here from home for further evaluation of dizziness, vision problem, elevated blood pressure, and fatigue. He reports the symptoms started 3 days ago on Thursday (10/14). He reports he has had sinus congestion, head pressure, productive cough. Saw his PCP 5 days ago. He was started on abx, prednisone, and tessalon perles. He completed the prednisone yesterday and the antibiotic today. Productive cough has resolved but the nasal congestion remains present. Patient then developed blurred vision 3 days ago that seems to be effecting how well he can see long distance, no peripheral vision cuts. States he would look at objects but would not be able to process well what it was, more so feeling foggy . Denies worsening word finding difficulty. Family reports he has seemed out of it but not confused. He denies focal numbness, focal weakness, changes in speech, or balance disturbances. The patient's daughter is also concerned he may have had a stroke in the past. 5 years ago he had a syncopal episode and when he aroused he had word finding difficulty. Did not seek care at that time and he has since had halted speech. Of note, the patient reports his symptoms seem to have partially resolved this evening which correlates with a reduction in his blood pressure. Initial VS at presentation: 97.9? F, HR 66, R 17, 175/92, and 100% on RA. ED workup showed: WBC 11.8, hemoglobin 17.2, normal coags, no significant electrolyte derangements, creatinine 0.98 and GFR >60, glucose 131, and initial troponin negative. CXR showed no acute cardiopulmonary process. Head/neck CTA showed no acute intracranial process, acute bilateral maxillary sinusitis, no LVO/high-grade stenosis/aneurysm, no carotid or vertebral artery occlusion or dissection, no severe carotid stenosis, severe short segment stenosis at the origin of the left vertebral artery, and likely mild interstitial edema. Review of Systems Review of Systems: All systems reviewed & are unremarkable except as noted in HPI and below PMFSH Past Medical History Medical History Coronary artery disease cardiac cath : 50% in stent restenosis of rca. /balloon angioplasty performed. Old myocardial infarction acute inf wall infarction Primary osteoarthritis of right knee Synovial cyst of popliteal space [Jacques], right knee Myopathy associated with sepsis Bacteremia Hypertension Hyperthermia Former smoker quit 2011 Plantar fasciitis De Quervain's tenosynovitis, left Right rotator cuff tear BMI 27.0-27.9,adult History of stroke Stable angina pectoris 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 ballooned 08.30.19 Surgical History Surgical History History of coronary artery stent placement History of appendectomy History of shoulder surgery (~2000) R RTC repair 2000 [facility] Family History Family History Mother Patient's mother is , Onset Age: 81 Father Patient's father is , Onset Age: 80 Family history of emphysema Sibling Carcinoma of colon, Onset Age: 67 Family history of gastrointestinal disorder Family history of cardiovascular disease Family history of malignant neoplasm of breast Family history of lymphoma Family history of malignant neoplasm of thyroid Family history of malignant neoplasm of urinary bladder Social History Social History Smoking packs per day: 0.5 Smoking cigarettes per day: 10.0 Years smoked: 54 Smoking pack-years: 27.00 Smoking status: Former smoker Alcohol intake: current Alcohol use details: Occasional Substance use: never Substance use type: does not use Do You Feel Safe in your Home?: Yes Lack of Transportation: No Lack of Food: Never True Current Housing: I Have Housing Concerned About Future Housing: No Difficulty Paying Gas/Electric Bills: No Difficulty Paying for Meds: No Currently Unemployed: No Education: High School Diploma/GED Difficulty w/ Childcare or Family Care: No Living arrangements: with family Additional living arrangements comments: Spouse- Jacqueline Wilks Occupation/Education: occupation Additional occupation/education comments: Self-Employed Spiritual care concerns: No Meds Home Medications and Allergies Home Medications ?Medication ?Instructions ?Recorded ?Confirmed ?Type aspirin 81 mg tablet,delayed 81 mg PO DAILY 08/30/19 10/16/24 History release (Aspir-) atorvastatin 40 mg tablet 40 mg PO DAILY 08/30/19 10/16/24 History nitroglycerin 0.4 mg sublingual 0.4 mg sublingual DIRECTED PRN 09/01/19 10/16/24 Rx tablet (Nitrostat) Chest Pain #25 tabs lisinopril 40 mg tablet 40 mg PO DAILY 12/24/22 10/16/24 History metoprolol succinate 50 mg 50 mg PO DAILY 12/24/22 10/16/24 History tablet,extended release 24 hr amoxicillin 875 mg-potassium 1 tablet PO BID 10/16/24 10/16/24 History clavulanate 125 mg tablet benzonatate 200 mg capsule 200 mg PO TID 10/16/24 10/16/24 History Allergies Allergy/AdvReac Type Severity Reaction Status Date / Time No Known Allergies Allergy Verified 10/16/24 14:23 Vital Signs Vital Signs - 24 hr 10/16/24 14:17 10/16/24 14:17 10/16/24 14:28 Temperature 97.9 F Pulse Rate 66 66 72 Respiratory Rate 17 17 Blood Pressure 207/92 H 207/92 H Pulse Oximetry 100 95 Oxygen Delivery Room Air 10/16/24 14:41 10/16/24 14:46 10/16/24 15:04 Temperature Pulse Rate 68 67 63 Respiratory Rate 18 15 20 Blood Pressure Pulse Oximetry 100 81 L 99 Oxygen Delivery 10/16/24 15:15 10/16/24 15:16 10/16/24 15:34 Temperature Pulse Rate 75 76 72 Respiratory Rate 19 24 H Blood Pressure 186/99 H Pulse Oximetry 100 Oxygen Delivery 10/16/24 15:46 10/16/24 16:01 10/16/24 16:15 Temperature Pulse Rate 62 71 63 Respiratory Rate 12 18 14 Blood Pressure Pulse Oximetry 100 100 97 Oxygen Delivery 10/16/24 16:30 10/16/24 16:48 10/16/24 17:00 Temperature Pulse Rate 73 66 66 Respiratory Rate 26 H 22 H 24 H Blood Pressure Pulse Oximetry 100 100 Oxygen Delivery 10/16/24 17:15 10/16/24 17:17 Temperature Pulse Rate 67 68 Respiratory Rate 22 H 18 Blood Pressure 158/85 H 175/115 H Pulse Oximetry 100 100 Oxygen Delivery Exam Narrative: flat, othwerwise normal. congested. Const: General: comfortable and no acute distress Other: , male, nontoxic appearance HENMT: Face/Nose/Sinus: Normal nares present Mouth: Yes moist mucous membranes Eyes: General: appearance normal, both eyes and all related structures Sclera: sclerae normal Pupils: Equal, round and reactive pupils present EOM: EOMs intact bilaterally Resp: Effort & Inspection: normal respiratory effort Auscultation: clear to auscultation bilaterally Cardio: Rate: regular rate Rhythm: regular rhythm Other: Occasional ectopy, no murmur. GI: Other: Abdomen soft, nondistended, nontender. Skin: General skin exam: normal color and no rashes or lesions noted Wounds: no wounds Neuro: Motor exam (neuro): 5/5 motor strength present throughout Sensory Exam: normal sensation Other: Mildly slow speech shelbie. No obvious word-finding difficulties. No nystagmus. PERRLA. Moving all extremities. No ataxia. NIH 0. Extrem: General: normal to inspection Psych: Mental Status: mental status grossly normal Other: Blunted affect. Good insight and judgment. H&P: Results Labs Labs: Short CBC 10/16/24 Range/Units 14:42 WBC 11.8 H (4.5-10.0) K/mm3 Hgb 17.2 D (14.0-18.0) g/dL Hct 51.9 (42.0-52.0) % Plt Count 231 (150-375) k/mm3 BMP 10/16/24 14:42 Sodium 138 Potassium 4.1 Chloride 100 Carbon Dioxide 29 BUN 18 Creatinine 0.98 Glucose 131 H Calcium 8.8 Cardiac Enzymes 10/16/24 Range/Units 14:42 Troponin I < 0.012 (0.000-0.034) ng/mL Liver Function 10/16/24 Range/Units 14:42 Total Bilirubin 1.2 (0.2-1.3) mg/dL AST 25 (17-59) U/L ALT 28 (6-50) U/L Alkaline Phosphatase 75 (38-126) U/L Albumin 4.0 (3.5-5.1) g/dL Assessment and Plan Assessment and plan (1) Vertebral artery stenosis: Qualifiers: Laterality: left Qualified Code(s): I65.02 - Occlusion and stenosis of left vertebral artery Code(s): I65.09 - Occlusion and stenosis of unspecified vertebral artery Status: Acute Assessment and Plan: - reports no blurred vision starting 3 days ago - admission for observation and telemetry - not candidate for thrombolytics or thrombectomy, due to no LVO on imaging and time frame - CXR: No acute cardiopulmonary process. - CTA: No acute intracranial process. CT findings may represent acute bilateral maxillary sinusitis in the appropriate clinical context. No large vessel intracranial occlusion, high-grade intracranial stenosis, or aneurysm. No carotid or vertebral artery occlusion or dissection. No severe carotid stenosis. Severe short segment stenosis at the origin of the left vertebral artery. Likely mild interstitial edema. - neurology consulted - brain MRI w/wo ordered - continue home ASA 81 daily and atorvastatin 40 mg daily (2) Vision changes: Code(s): H53.9 - Unspecified visual disturbance Status: Acute Assessment and Plan: - vision changes, dizziness, and BP elevated. Possible etiologies: CVA, hypertensive emergency/urgency, infection, TIA, sinusitis - check MRI - reduce BP to less than 170/80. Currently on lisinopril 40 mg daily, metoprolol 50 mg ER daily. Will give hydralazine and monitor BP response. Patient reporting a reduction his symptoms this evening with reduction in his blood pressure. Higher suspicion for hypertensive urgency. (3) Acute sinusitis: Qualifiers: Recurrence: non-recurrent Sinusitis location: unspecified location Qualified Code(s): J01.90 - Acute sinusitis, unspecified Code(s): J01.90 - Acute sinusitis, unspecified Status: Acute Assessment and Plan: - sinusitis seen on CTA head/neck with cold-like symptoms for the past 3 days and dizziness. Given presentation will start Augmentin b.i.d. - start Mucinex - antipyretic/analgesic p.r.n. - check viral PCR (4) Hypertension: Qualifiers: Hypertension type: primary hypertension Qualified Code(s): I10 - Essential (primary) hypertension Code(s): I10 - Essential (primary) hypertension Status: Acute Assessment and Plan: - chronic, currently ranging between 158/85 to 207/92 - continue home medications: Lisinopril and metoprolol - monitor Plan Diet: Heart healthy GI Prophylaxis: Not currently indicated DVT Prophylaxis: SCDs Lines: Peripheral Code Status: Full code Quality VTE Prophylaxis VTE prophylaxis: mechanical ordered Hospitalist [facility] Advance Care Plan I have confirmed that the patient's Advanced Care Plan is present, code status is documented, or surrogate decision maker is listed in patient medical record.: Yes Medication Reconciliation I have utilized all available resources to obtain, update and review the patients current medications (includes all prescriptions, OTC, herbals, cannabis, and nutritional supplements).: Yes
--- NOTE | 2024-10-16 19:25 | PC.NURSE ---
Report received from GEOVANNI Ashby. Assumed care of patient at this time.
--- NOTE | 2024-10-16 20:13 | ADMGEN ---
This patient, Foreign Wilks, was admitted to 2 Medical Room 241-01. Patient/family oriented to hospital policies and general routines including ID bracelet, bed and alarms, visiting hours, pain management, procedures, bathroom and other care routines, personal items, smoking policy, room service/diet, and visiting hours. Information on how to activate the Rapid Response Team has been discussed. Patient/Family are encouraged to report perceived risks to care and to ask questions if they do not understand what they are told or what they should do.
[2024-10-16] MEDS: guaiFENesin 12 HR 600 MG TABCR PO (20:31)
[2024-10-16] MEDS: ACETAMINOPHEN 325 MG TABLET 650 MG PO (20:31)
[2024-10-16] MEDS: BENZONATATE 100 MG CAPSULE 200 MG PO (20:31)
[2024-10-17] VITALS (7 sets, daily range): BP systolic 126–151; BP diastolic 51–67; PULSE 70–83; RESP 16; TEMP 36.5–37; O2SAT 95–97
[2024-10-17 04:45] LABS: Basophils Absolute Auto 0.1 K/mm3 (0.0-0.1); Basophils Percent Auto 0.8 % (0.2-1.2); Eosinophils Absolute Auto 0.4 K/mm3 (0-0.3); Eosinophils Percent Auto 3.4 % (0-4.4); Hematocrit 46.2 % (42.0-52.0); Hemoglobin 15.3 g/dL (14.0-18.0); Immature Granulocyte Absolute 0.13 K/mm3 (0.00-0.031); Immature Granulocyte Percent A 1.2 % (0-0.5); Lymphocytes Absolute Auto 3.47 K/mm3 (0.9-3.2); Lymphocytes Percent Auto 31.8 % (18.3-44.2); Mean Corpuscular HGB Conc 33.1 g/dl (32-36); Mean Corpuscular Volume 87.7 fl (80-100); Mean Platelet Volume 11.4 fl (7.4-10.4); Monocytes Percent Auto 8.9 % (2.6-8.5); Neutrophils Absolute Auto 5.9 K/mm3 (1.3-6.7); Neutrophils Percent Auto 53.9 % (45.5-73.1); Platelet Count Result 211 k/mm3 (150-375); Red Blood Count 5.27 M/mm3 (4.6-6.20); Red Cell Distribution Width 13.6 % (11.5-14.5); White Blood Count 10.9 K/mm3 (4.5-10.0)
[2024-10-17 04:54] LABS: Anion Gap 7 mmol/L (4-12); Blood Urea Nitrogen 24 mg/dL (9-20); Calcium 8.6 mg/dL (8.4-10.2); Carbon Dioxide 26 mmol/L (22-30); Chloride 103 mmol/L (98-107); Estimated CRCL calculation 51 ml/min; Estimated Glomerular Filt Rate > 60; Glucose 115 mg/dL (65-110); Potassium 3.9 mmol/L (3.4-5.0); Sodium 136 mmol/L (137-145)
[2024-10-17] MEDS: BENZONATATE 100 MG CAPSULE 200 MG PO ×3 (05:00→21:10)
[2024-10-17] MEDS: IPRATROPIUM NASAL SPRAY 0.06% 15 ML BOTTLE 2 SPRAY NASAL ×2 (09:07→15:27)
[2024-10-17] MEDS: ASPIRIN 81 MG CHEWABLE TABLET PO (09:07)
[2024-10-17] MEDS: lisinopriL 20 MG TABLET 40 MG PO (09:08)
[2024-10-17] MEDS: guaiFENesin 12 HR 600 MG TABCR PO ×2 (09:08→21:10)
[2024-10-17] MEDS: AMOXICILLIN/CLAVULANATE K 875-125 MG TAB 1 TABLET PO ×2 (09:08→21:10)
[2024-10-17] MEDS: METOPROLOL SUCCINATE EXT REL 50 MG TABCR PO (09:08)
[2024-10-17] MEDS: ATORVASTATIN 40 MG TABLET PO (09:08)
--- NOTE | 2024-10-17 11:28 | PM.IMPN ---
Progress Note: A&P Assessment and Plan (1) Vertebral artery stenosis: Qualifiers: Laterality: left Qualified Code(s): I65.02 - Occlusion and stenosis of left vertebral artery Code(s): I65.09 - Occlusion and stenosis of unspecified vertebral artery Status: Acute Assessment and Plan: - reports no blurred vision starting 3 days ago - admission for observation and telemetry - not candidate for thrombolytics or thrombectomy, due to no LVO on imaging and time frame - CXR: No acute cardiopulmonary process. - CTA: No acute intracranial process. CT findings may represent acute bilateral maxillary sinusitis in the appropriate clinical context. No large vessel intracranial occlusion, high-grade intracranial stenosis, or aneurysm. No carotid or vertebral artery occlusion or dissection. No severe carotid stenosis. Severe short segment stenosis at the origin of the left vertebral artery. Likely mild interstitial edema. - neurology consulted - brain MRI w/wo ordered - continue home ASA 81 daily and atorvastatin 40 mg daily (2) Vision changes: Code(s): H53.9 - Unspecified visual disturbance Status: Acute Assessment and Plan: - vision changes, dizziness, and BP elevated. Possible etiologies: CVA, hypertensive emergency/urgency, infection, TIA, sinusitis - check MRI - reduce BP to less than 170/80. Currently on lisinopril 40 mg daily, metoprolol 50 mg ER daily. Will give hydralazine and monitor BP response. Patient reporting a reduction his symptoms this evening with reduction in his blood pressure. Higher suspicion for hypertensive urgency. (3) Acute sinusitis: Qualifiers: Sinusitis location: unspecified location Recurrence: non-recurrent Qualified Code(s): J01.90 - Acute sinusitis, unspecified Code(s): J01.90 - Acute sinusitis, unspecified Status: Acute Assessment and Plan: - sinusitis seen on CTA head/neck with cold-like symptoms for the past 3 days and dizziness. Given presentation will start Augmentin b.i.d. - start Mucinex - antipyretic/analgesic p.r.n. - check viral PCR (4) Hypertension: Qualifiers: Hypertension type: primary hypertension Qualified Code(s): I10 - Essential (primary) hypertension Code(s): I10 - Essential (primary) hypertension Status: Acute Assessment and Plan: - chronic, currently ranging between 158/85 to 207/92 - continue home medications: Lisinopril and metoprolol - monitor-stable Plan Diet: Heart healthy GI Prophylaxis: Not currently indicated DVT Prophylaxis: SCDs Lines: Peripheral Code Status: Full code Time Spent With Patient Time with patient: 25 - 35 minutes Subjective Date/time seen: 10/17/24 11:28 Interval history: 79 y/o M presents here with dizziness and vision problem with PMH of hypertension, former smoker, stroke, coronary artery disease with stent placement, and hyperlipidemia. The patient presents here from home for further evaluation of dizziness, vision problem, elevated blood pressure, and fatigue. Pt has penile implant- will try to reach out to urologist to see if it is mri safe. pt is asymptomatic currently. calm and comfortable. Review of Systems Review of Systems: All systems reviewed & are unremarkable except as noted in HPI and below Exam Narrative: calm, pleasant Const: General: comfortable and no acute distress Other: , male, nontoxic appearance HENMT: Face/Nose/Sinus: Normal nares present Mouth: Yes moist mucous membranes Eyes: General: appearance normal, both eyes and all related structures Sclera: sclerae normal Pupils: Equal, round and reactive pupils present EOM: EOMs intact bilaterally Resp: Effort & Inspection: normal respiratory effort Auscultation: clear to auscultation bilaterally Cardio: Rate: regular rate Rhythm: regular rhythm Other: Occasional ectopy, no murmur. GI: Other: Abdomen soft, nondistended, nontender. Skin: General skin exam: normal color and no rashes or lesions noted Wounds: no wounds Neuro: Cranial nerves: Yes Equal, round and reactive pupils present Motor exam (neuro): 5/5 motor strength present throughout Sensory Exam: normal sensation Other: Mildly slow speech shelbie. No obvious word-finding difficulties. No nystagmus. PERRLA. Moving all extremities. No ataxia. NIH 0. Extrem: General: normal to inspection Psych: Mental Status: mental status grossly normal Other: Blunted affect. Good insight and judgment. Objective Data Vital Signs Vital Signs: Vital Signs - 24 hr 10/16/24 14:17 10/16/24 14:17 10/16/24 14:28 Temperature 97.9 F Pulse Rate 66 66 72 Respiratory Rate 17 17 Blood Pressure 207/92 H 207/92 H Pulse Oximetry 100 95 Oxygen Delivery Room Air 10/16/24 14:41 10/16/24 14:46 10/16/24 15:04 Temperature Pulse Rate 68 67 63 Respiratory Rate 18 15 20 Blood Pressure Pulse Oximetry 100 81 L 99 Oxygen Delivery 10/16/24 15:15 10/16/24 15:16 10/16/24 15:34 Temperature Pulse Rate 75 76 72 Respiratory Rate 19 24 H Blood Pressure 186/99 H Pulse Oximetry 100 Oxygen Delivery 10/16/24 15:46 10/16/24 16:01 10/16/24 16:15 Temperature Pulse Rate 62 71 63 Respiratory Rate 12 18 14 Blood Pressure Pulse Oximetry 100 100 97 Oxygen Delivery 10/16/24 16:30 10/16/24 16:48 10/16/24 17:00 Temperature Pulse Rate 73 66 66 Respiratory Rate 26 H 22 H 24 H Blood Pressure Pulse Oximetry 100 100 Oxygen Delivery 10/16/24 17:15 10/16/24 17:17 10/16/24 19:46 Temperature Pulse Rate 67 68 Respiratory Rate 22 H 18 Blood Pressure 158/85 H 175/115 H 154/91 H Pulse Oximetry 100 100 Oxygen Delivery 10/16/24 19:46 10/16/24 19:50 10/16/24 20:00 Temperature Pulse Rate 68 71 73 Respiratory Rate 18 17 18 Blood Pressure 154/91 H 136/81 Pulse Oximetry 100 96 97 Oxygen Delivery Room Air 10/16/24 20:15 10/17/24 00:00 10/17/24 04:39 Temperature 98 F 98.6 F 98.6 F Pulse Rate 73 70 83 Respiratory Rate 18 16 16 Blood Pressure 135/84 132/67 151/51 H Pulse Oximetry 97 95 97 Oxygen Delivery 10/17/24 09:07 10/17/24 09:08 Temperature Pulse Rate 70 Respiratory Rate Blood Pressure Pulse Oximetry 97 Oxygen Delivery Room Air Intake/Output Intake/Output: Intake & Output 10/14/24 10/15/24 10/16/24 10/17/24 23:59 23:59 23:59 23:59 Intake Total 670 Balance 670 Meds/Results Medications: Active Medications Generic Name Dose Route Start Last Admin Trade Name Freq PRN Reason Stop Dose Admin Acetaminophen 650 mg 10/16/24 18:34 10/16/24 20:31 Acetaminophen 325 Mg Tablet PO 650 mg Q4H PRN Administration Mild Pain (1-3) or Fever Amoxicillin/Clavulanate Potassium 1 tablet 10/16/24 21:00 10/17/24 09:08 Amoxicillin/Clavulanate K 875-125 Mg Tab PO 1 tablet Q12HR DMITRY Administration Aspirin 81 mg 10/17/24 08:00 10/17/24 09:07 Aspirin 81 Mg Chewable Tablet PO 81 mg DAILY@0800 DMITRY Administration Atorvastatin Calcium 40 mg 10/17/24 09:00 10/17/24 09:08 Atorvastatin 40 Mg Tablet PO 40 mg DAILY DMITRY Administration Benzonatate 200 mg 10/16/24 22:00 10/17/24 05:00 Benzonatate 100 Mg Capsule PO 200 mg Q8HR DMITRY Administration Guaifenesin 600 mg 10/16/24 21:00 10/17/24 09:08 Guaifenesin 12 Hr 600 Mg Tabcr PO 600 mg Q12HR DMITRY Administration Ipratropium [place] 2 spray 10/17/24 09:00 10/17/24 09:07 Ipratropium Nasal [place] 0.06% 15 Ml Bottle NASAL 2 spray TID DMITRY Administration Lisinopril 40 mg 10/17/24 09:00 10/17/24 09:08 Lisinopril 20 Mg Tablet PO 40 mg DAILY DMIRTY Administration Metoprolol Succinate 50 mg 10/17/24 09:00 10/17/24 09:08 Metoprolol Succinate Ext Rel 50 Mg Tabcr PO 50 mg DAILY DMITRY Administration Radiology Results: ITS Impressions Chest X-Ray 10/16/24 15:30 IMPRESSION: No acute cardiopulmonary process. Head/Neck CTA 10/16/24 15:49 IMPRESSION: No acute intracranial process. CT findings may represent acute bilateral maxillary sinusitis in the appropriate clinical context. No large vessel intracranial occlusion, high-grade intracranial stenosis, or aneurysm. No carotid or vertebral artery occlusion or dissection. No severe carotid stenosis. Severe short segment stenosis at the origin of the left vertebral artery. Likely mild interstitial edema. Labs Labs: Laboratory Results - last 24 hr 10/16/24 10/16/24 10/17/24 14:22 14:42 03:58 WBC 11.8 H 10.9 H RBC 5.79 5.27 Hgb 17.2 D 15.3 Hct 51.9 46.2 MCV 89.6 87.7 MCH 29.7 29.0 MCHC 33.1 33.1 RDW 13.6 13.6 Plt Count 231 211 MPV 11.4 H 11.4 H Immature Gran % (Auto) 1.3 H 1.2 H Neut % (Auto) 45.3 L 53.9 Lymph % (Auto) 42.9 31.8 [place] % (Auto) 6.8 8.9 H Eos % (Auto) 2.9 3.4 Baso % (Auto) 0.8 0.8 Lymph # (Auto) 5.06 H 3.47 H [place] # (Auto) 0.8 H 1.0 H Eos # (Auto) 0.3 0.4 H Baso # (Auto) 0.1 0.1 Abs Immat Gran (auto) 0.15 H 0.13 H Absolute Neuts (auto) 5.4 5.9 Absolute Nucleated RBC 0.000 0.000 Nucleated RBC % 0.0 0.0 PT 12.9 INR 0.9 APTT 25.5 Sodium 138 136 L Potassium 4.1 3.9 Chloride 100 103 Carbon Dioxide 29 26 Anion Gap 9 7 BUN 18 24 H Creatinine 0.98 0.99 Estim Creat Clear Calc 51 51 Estimated GFR > 60 > 60 Glucose 131 H 115 H POC Capillary Glucose 131 H Calcium 8.8 8.6 Total Bilirubin 1.2 AST 25 ALT 28 Alkaline Phosphatase 75 Troponin I < 0.012 Total Protein 7.0 Albumin 4.0 Quality VTE Prophylaxis VTE prophylaxis: mechanical ordered
--- NOTE | 2024-10-17 12:24 | P.CONNEU_ITS ---
Assessment and Plan Assessment and plan (1) Dizziness: Code(s): R42 - Dizziness and giddiness Status: Acute (2) Acute sinusitis: Qualifiers: Sinusitis location: unspecified location Recurrence: non-recurrent Q ualified Code(s): J01.90 - Acute sinusitis, unspecified Code(s): J01.90 - Acute sinusitis, unspecified Status: Acute (3) History of stroke: Code(s): Z86.73 - Personal history of transient ischemic attack (TIA), and cerebral infarction without residual deficits Status: Acute (4) Vertebral artery stenosis: Qualifiers: Laterality: left Qualified Code(s): I65.02 - Occlusion and stenosis of left vertebral artery Code(s): I65.09 - Occlusion and stenosis of unspecified vertebral artery Status: Acute Assessment and Plan: left vertebral artery shows severe stenosis in a short segment. (5) Hypertension: Qualifiers: Hypertension type: primary hypertension Qualified Code(s): I10 - Essential (primary) hypertension Code(s): I10 - Essential (primary) hypertension Status: Acute (6) Sinusitis: Code(s): J32.9 - Chronic sinusitis, unspecified Status: Acute (7) Vision changes: Code(s): H53.9 - Unspecified visual disturbance Status: Acute Plan The patient is doing fairly well at this time is blood pressure is under control. The last LDL was 64 on in July 26. We shall wait for the results of MRI and if it does show any stroke in the distribution the left vertebral artery certain that we followed up per the further. He is being treated for maxillary sinusitis and hypertension and that of course may also help. White cell count was slightly high 10.9. Patient is on aspirin 81 mg a day and Lipitor 40 mg a day. He does suffer from chronic headache which of course can be addressed as an outpatient if this is a problem. We should follow the results of investigations and advise further. Consult date: 10/17/24 HPI: Foreign Wilks is a 79 year old male Presented to the hospital with complaints of dizziness and headache. His and daughter were present at the time of the evaluation. The been observing him closely and the noted that his blood pressure has gone up to 207/92 when he was brought to the emergency room. A CT scan of the brain was performed which did not show any acute abnormalities however CT angiogram of the head and neck shows a severe stenosis the left vertebral artery. In addition there is also evidence for bilateral maxillary sinusitis. Patient suffers from headache on and off. He also had some difficulty with word finding however this started after he had a stroke 5 years ago at that time he also had passed out. He has been on aspirin and Lipitor. On admission his white cell count was slightly high at 10.5. He also has history of coronary artery disease and stenting. Used to smoke in the past until 2011. There is also history of hypertension and hyperlipidemia. Review of Systems 2 Review of Systems: No passing out spell. He does suffer from headache on and off. All systems reviewed & are unremarkable except as noted in HPI and below PMFSH Past Medical History Medical History (Updated 10/17/24 @ 12:29 by Margaux Bose MD) Dizziness Coronary artery disease cardiac cath : 50% in stent restenosis of rca. /balloon angioplasty performed. Old myocardial infarction 3 acute inf wall infarction Primary osteoarthritis of right knee Synovial cyst of popliteal space [Jacques], right knee Myopathy associated with sepsis Bacteremia Hypertension Hyperthermia Former smoker quit 2011 Plantar fasciitis De Quervain's tenosynovitis, left Right rotator cuff tear BMI 27.0-27.9,adult History of stroke Stable angina pectoris 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 ballooned 1.28.20 Surgical History Surgical History History of coronary artery stent placement History of appendectomy History of shoulder surgery (~2000) R RTC repair 2000 [place] Family History Family History Mother Patient's mother is , Onset Age: 81 Father Patient's father is , Onset Age: 80 Family history of emphysema Sibling Carcinoma of colon, Onset Age: 67 Family history of gastrointestinal disorder Family history of cardiovascular disease Family history of malignant neoplasm of breast Family history of lymphoma Family history of malignant neoplasm of thyroid Family history of malignant neoplasm of urinary bladder Social History Social History Smoking packs per day: 0.5 Smoking cigarettes per day: 10.0 Years smoked: 54 Smoking pack-years: 27.00 Smoking status: Former smoker Alcohol intake: current Alcohol use details: Occasional Substance use: never Substance use type: does not use Do You Feel Safe in your Home?: Yes Lack of Transportation: No Lack of Food: Never True Current Housing: I Have Housing Concerned About Future Housing: No Difficulty Paying Gas/Electric Bills: No Difficulty Paying for Meds: No Currently Unemployed: No Education: High School Diploma/GED Difficulty w/ Childcare or Family Care: No Living arrangements: with family Additional living arrangements comments: Spouse- Jacqueline Wilks Occupation/Education: occupation Additional occupation/education comments: Self-Employed Spiritual care concerns: No Meds Home Medications and Allergies Home Medications ?Medication ?Instructions ?Recorded ?Confirmed ?Type aspirin 81 mg tablet,delayed 81 mg PO DAILY 08/30/19 10/16/24 History release (Aspir-) atorvastatin 40 mg tablet 40 mg PO DAILY 08/30/19 10/16/24 History nitroglycerin 0.4 mg sublingual 0.4 mg sublingual DIRECTED PRN 09/01/19 10/16/24 Rx tablet (Nitrostat) Chest Pain #25 tabs lisinopril 40 mg tablet 40 mg PO DAILY 12/24/22 10/16/24 History metoprolol succinate 50 mg 50 mg PO DAILY 12/24/22 10/16/24 History tablet,extended release 24 hr amoxicillin 875 mg-potassium 1 tablet PO BID 10/16/24 10/16/24 History clavulanate 125 mg tablet benzonatate 200 mg capsule 200 mg PO TID 10/16/24 10/16/24 History Allergies Allergy/AdvReac Type Severity Reaction Status Date / Time No Known Allergies Allergy Verified 10/16/24 14:23 Vital Signs Vital Signs - 24 hr 10/16/24 14:17 10/16/24 14:17 10/16/24 14:28 Temperature 97.9 F Pulse Rate 66 66 72 Respiratory Rate 17 17 Blood Pressure 207/92 H 207/92 H Pulse Oximetry 100 95 Oxygen Delivery Room Air 10/16/24 14:41 10/16/24 14:46 10/16/24 15:04 Temperature Pulse Rate 68 67 63 Respiratory Rate 18 15 20 Blood Pressure Pulse Oximetry 100 81 L 99 Oxygen Delivery 10/16/24 15:15 10/16/24 15:16 10/16/24 15:34 Temperature Pulse Rate 75 76 72 Respiratory Rate 19 24 H Blood Pressure 186/99 H Pulse Oximetry 100 Oxygen Delivery 10/16/24 15:46 10/16/24 16:01 10/16/24 16:15 Temperature Pulse Rate 62 71 63 Respiratory Rate 12 18 14 Blood Pressure Pulse Oximetry 100 100 97 Oxygen Delivery 10/16/24 16:30 10/16/24 16:48 10/16/24 17:00 Temperature Pulse Rate 73 66 66 Respiratory Rate 26 H 22 H 24 H Blood Pressure Pulse Oximetry 100 100 Oxygen Delivery 10/16/24 17:15 10/16/24 17:17 10/16/24 19:46 Temperature Pulse Rate 67 68 Respiratory Rate 22 H 18 Blood Pressure 158/85 H 175/115 H 154/91 H Pulse Oximetry 100 100 Oxygen Delivery 10/16/24 19:46 10/16/24 19:50 10/16/24 20:00 Temperature Pulse Rate 68 71 73 Respiratory Rate 18 17 18 Blood Pressure 154/91 H 136/81 Pulse Oximetry 100 96 97 Oxygen Delivery Room Air 10/16/24 20:15 10/17/24 00:00 10/17/24 04:39 Temperature 98 F 98.6 F 98.6 F Pulse Rate 73 70 83 Respiratory Rate 18 16 16 Blood Pressure 135/84 132/67 151/51 H Pulse Oximetry 97 95 97 Oxygen Delivery 10/17/24 09:07 10/17/24 09:08 Temperature Pulse Rate 70 Respiratory Rate Blood Pressure Pulse Oximetry 97 Oxygen Delivery Room Air Exam 2 Const: General: cooperative, well developed and alert O rientation/consciousness: patient oriented x3 HENMT: Head: atraumatic Eyes: Alignment and Position: position normal Pupils: Equal, round and reactive pupils present EOM: EOMs intact bilaterally Neck: Neck: supple Resp: Effort & Inspection: normal respiratory effort Cardio: Rate: regular rate Neuro: General: patient oriented x3 Cranial nerves: Yes CN's II-XII intact bilaterally, Yes facial sensation intact/muscles of mastication intact, Yes Equal, round and reactive pupils present, Yes facial symmetry and Yes Midline tongue present Cognition (Neuro): normal cognition Speech: normal speech Motor exam (neuro): 5/5 motor strength present throughout Sensory Exam: n ormal sensation Coordination: [id number] test normal and Normal rapid alternating movements of the distal upper extremity present (Neuro) Results Labs 10/17/24 03:58 10/17/24 03:58 Labs: Short CBC 10/16/24 10/17/24 Range/Units 14:42 03:58 WBC 11.8 H 10.9 H (4.5-10.0) K/mm3 Hgb 17.2 D 15.3 (14.0-18.0) g/dL Hct 51.9 46.2 (42.0-52.0) % Plt Count 231 211 (150-375) k/mm3 BMP 10/16/24 10/17/24 14:42 03:58 Sodium 138 136 L Potassium 4.1 3.9 Chloride 100 103 Carbon Dioxide 29 26 BUN 18 24 H Creatinine 0.98 0.99 Glucose 131 H 115 H Calcium 8.8 8.6 Cardiac Enzymes 10/16/24 Range/Units 14:42 Troponin I < 0.012 (0.000-0.034) ng/mL Liver Function 10/16/24 Range/Units 14:42 Total Bilirubin 1.2 (0.2-1.3) mg/dL AST 25 (17-59) U/L ALT 28 (6-50) U/L Alkaline Phosphatase 75 (38-126) U/L Albumin 4.0 (3.5-5.1) g/dL [address] [place] [address] CT Scan Report Signed Patient: Foreign Wilks : 1945 MR#: [id number] Age: 79 Acct:[id number] Loc: [facility] ADM Date: 10/16/24Attending Dr: Ordering Physician: Raysa Church MD Date of Service: 10/16/24 Procedure(s): CTA brain carotid Accession Number(s): [id number] cc: Jyoti Burgess MD; Raysa Church MD~ EXAMINATION: CTA brain carotid DATE: 10/16/2024 15:34 INDICATION: STROKE-LIKE SYMPTOMS TECHNIQUE: Computed tomographic angiography (CTA) of the head was performed without and with 100 mL Omnipaque-350 intravenous contrast. CTA of the neck was performed with intravenous contrast. Automated exposure control and iterative reconstruction technique were employed. The dose-length product was 1723.18 mGy- cm. Maximum intensity projection and volume rendered 3D-reconstructions were created by the technologist on a separate workstation. COMPARISON: CT brain 05/10/2023. FINDINGS: CT BRAIN: No acute large vessel infarct, intracranial hemorrhage, mass, or hydrocephalus. Moderate atrophy and chronic white matter change. Atherosclerotic intracranial calcification. Bilateral basal ganglia calcification. Scattered mucosal thickening in the paranasal sinuses. Bilateral maxillary air-fluid levels and aerated secretions. CTA HEAD: No large vessel occlusion, aneurysm, high flow vascular malformation, nidus or extravasation. CTA NECK: Aortic arch and proximal great vessels: Normal arch anatomy. Atherosclerotic calcifications at the visualized aortic arch and proximal great vessels. Right common carotid, carotid bifurcation, and internal carotid artery: Mild calcified atherosclerotic plaque at the carotid bifurcation.There is 0% stenosis of the proximal right internal carotid artery relative to normal distal artery lumen diameter (NASCET criteria). Left common carotid, carotid bifurcation, and internal carotid artery: Mild calcified atherosclerotic plaque at the carotid bifurcation.There is 0% stenosis of the proximal left internal carotid artery relative to normal distal artery lumen diameter (NASCET criteria). Vertebral arteries: Calcified and noncalcified plaque causing severe stenosis at the origin of the left vertebral artery. Left vertebral artery is dominant. Other findings: Degenerative change in the cervical spine. Senescent change and likely mild interstitial edema in the lungs. Subcentimeter hypodensity in the right thyroid which requires no additional evaluation. IMPRESSION: No acute intracranial process. CT findings may represent acute bilateral maxillary sinusitis in the appropriate clinical context. No large vessel intracranial occlusion, high-grade intracranial stenosis, or aneurysm. No carotid or vertebral artery occlusion or dissection. No severe carotid stenosis. Severe short segment stenosis at the origin of the left vertebral artery. Likely mild interstitial edema. Reviewed, dictated and finalized at location K.
[2024-10-18 00:31] VITALS: BP 112/64; PULSE 74; RESP 16; TEMP 37.1; O2SAT 96
[2024-10-18] MEDS: BENZONATATE 100 MG CAPSULE 200 MG PO (05:36)
[2024-10-18 06:23] VITALS: BP 140/70; PULSE 74; RESP 16; TEMP 37.1; O2SAT 98
[2024-10-18 08:17] VITALS: BP 150/66; PULSE 61; RESP 16; TEMP 36.2; O2SAT 96
[2024-10-18] MEDS: AMOXICILLIN/CLAVULANATE K 875-125 MG TAB 1 TABLET PO (08:21)
[2024-10-18] MEDS: ATORVASTATIN 40 MG TABLET PO (08:21)
[2024-10-18 08:22] VITALS: O2SAT 95
[2024-10-18] MEDS: guaiFENesin 12 HR 600 MG TABCR PO (08:22)
[2024-10-18] MEDS: IPRATROPIUM NASAL SPRAY 0.06% 15 ML BOTTLE 2 SPRAY NASAL (08:22)
[2024-10-18 08:23] VITALS: PULSE 72
[2024-10-18] MEDS: ASPIRIN 81 MG CHEWABLE TABLET PO (08:23)
[2024-10-18] MEDS: lisinopriL 20 MG TABLET 40 MG PO (08:23)
[2024-10-18] MEDS: METOPROLOL SUCCINATE EXT REL 50 MG TABCR PO (08:23)
[2024-10-18 08:55] VITALS: O2SAT 95
--- NOTE | 2024-10-18 11:44 | P.DS_ITS ---
DS: Admitting Diagnosis Discharge Date 10/18/24 Admitting Diagnosis COnfusion and bluured vision DS: Discharge Diagnosis Discharge Diagnosis (1) Acute sinusitis: Qualifiers: Sinusitis location: unspecified location Recurrence: non-recurrent Qualified Code(s): J01.90 - Acute sinusitis, unspecified Code(s): J01.90 - Acute sinusitis, unspecified Status: Acute (2) Dizziness: Code(s): R42 - Dizziness and giddiness Status: Acute DS: Summary Hospital Course Hospital Course: 79 y/o M presents here with dizziness and vision problem with PMH of hypertension, former smoker, stroke, coronary artery disease with stent placement, and hyperlipidemia. The patient presents here from home for further evaluation of dizziness, vision problem, elevated blood pressure, and fatigue. He reports the symptoms started 3 days ago on Thursday (10/14). He reports he has had sinus congestion, head pressure, productive cough. Saw his PCP 5 days ago. He was started on abx, prednisone, and tessalon perles. He completed the prednisone yesterday and the antibiotic today. Productive cough has resolved but the nasal congestion remains present. Patient then developed blurred vision 3 days ago that seems to be effecting how well he can see long distance, no peripheral vision cuts. States he would look at objects but would not be able to process well what it was, more so feeling foggy . Denies worsening word finding difficulty. Family reports he has seemed out of it but not confused. He denies focal numbness, focal weakness, changes in speech, or balance disturbances. The patient's daughter is also concerned he may have had a stroke in the past. 5 years ago he had a syncopal episode and when he aroused he had word finding difficulty. Did not seek care at that time and he has since had halted speech. Of note, the patient reports his symptoms seem to have partially resolved this evening which correlates with a reduction in his blood pressure. Initial VS at presentation: 97.9? F, HR 66, R 17, 175/92, and 100% on RA. ED workup showed: WBC 11.8, hemoglobin 17.2, normal coags, no significant electrolyte derangements, creatinine 0.98 and GFR >60, glucose 131, and initial troponin negative. CXR showed no acute cardiopulmonary process. Head/neck CTA showed no acute intracranial process, acute bilateral maxillary sinusitis, no LVO/high-grade stenosis/aneurysm, no carotid or vertebral artery occlusion or dissection, no severe carotid stenosis, severe short segment stenosis at the origin of the left vertebral artery, and likely mild interstitial edema. Neurology was consulted evaluated and recommended to continue Aspirin and Lipitor if MRI is does not show any stroke, but showed meningioma. MRI brain showed no stroke. Patient alert and oriented, ambulating comfortably and tolerating diet. Discharged on Nasacort ( will obtain from OTC), and continue Aspirin and Lipitor. F/u with PCP in 3-5 days F/u with neurology as instructed for meningioma Time Spent with Patient Time attestation: Total time spent providing and/or coordinating discharge services: Discharge Plan Discharge Attending physician on discharge: Camden Casey Consulting providers: Julio C Pham Discharging Clinician: Camden Casey Anticipated Discharge Date/Time: 10/18/24 11:39 Patient Disposition: Home, Self-Care Activity: as tolerated Diet: heart healthy Patient Instructions: Antibiotic Form Patient Language: Serbian Stand Alone Forms: General Discharge Information Follow-up/Referrals: Jyoti Burgess MD [Primary Care Provider] - (F/u with PCP in 3-5 days ) Julio C Pham MD [Physician] - (F/u with neurology as instructed ) Discharge Medications: Continued metoprolol succinate 50 mg tablet extended release 24 hr 50 mg PO DAILY lisinopril 40 mg tablet 40 mg PO DAILY atorvastatin 40 mg Tablet 40 mg PO DAILY aspirin [Aspir-81] 81 mg Tablet,Delayed Release (Dr/Ec) 81 mg PO DAILY nitroglycerin [Nitrostat] 0.4 mg Tablet, Sublingual 0.4 mg sublingual DIRECTED PRN (Reason: Chest Pain) Qty: 25 3RF Rx Instructions: One tablet sublingual Q 5 minutes x3 doses p.r.n. chest pain If no relief call 911 amoxicillin-pot clavulanate 875-125 mg tablet 1 tablet PO BID benzonatate 200 mg capsule 200 mg PO TID Date of admission: 10/17/24 08:09 Primary Care Provider: Jyoti Burgess Admitting Provider: Brett Jimenez Attending physician on admission: Brett Jimenez Condition: Stable
== END 2024-10-18 13:07 | disposition home or self-care (01) | DRG 68 ==
LOC: ANHED 16:49 → ANH2MED 19:37
PROVIDERS: Student in an Organized Health Care Education/Training Program; Admitting Provider Family Medicine; Emergency Provider Emergency Medicine; PCP Family Medicine; Visit Provider Internal Medicine
DX: I65.02 Occlusion and stenosis of left vertebral artery (principal); J01.00 Acute maxillary sinusitis, unspecified; J32.0 Chronic maxillary sinusitis; D32.9 Benign neoplasm of meninges, unspecified; R42 Dizziness and giddiness; H53.8 Other visual disturbances; I10 Essential (primary) hypertension; I25.10 Atherosclerotic heart disease of native coronary artery without angina pectoris; I25.2 Old myocardial infarction; E78.5 Hyperlipidemia, unspecified; M17.11 Unilateral primary osteoarthritis, right knee; Z87.891 Personal history of nicotine dependence; Z95.5 Presence of coronary angioplasty implant and graft; Z79.82 Long term (current) use of aspirin; Z90.49 Acquired absence of other specified parts of digestive tract; Z86.73 Personal history of transient ischemic attack (TIA), and cerebral infarction without residual deficits
CPT/HCPCS: 36415; 70496; 70498; 70553; 71045; 80048; 80053; 82948; 84484; 85025; 85610; 85730; 93005; 99285; A9270; A9579; G0378; Q9967